=== PATIENT | male | born 1950 | race African-American/Black ===

== ENCOUNTER 2020-03-17 11:41 | Emergency (ER) | payer MEDICARE, OTHER ==
[~2020-03-17] VITALS: Ht 182.9 cm; Wt 90.7 kg
[2020-03-17] MEDS ORDERED: NAMENDA10 MG ORAL (11:51)
[2020-03-17] MEDS ORDERED: HYDROCHLOROTH12.5 MG ORAL (11:51)
[2020-03-17] MEDS ORDERED: MULTI-BETIC TA1 EAC1 ORAL (11:51)
[2020-03-17] MEDS ORDERED: LOSARTAN POTASS50 MG ORAL (11:51)
[2020-03-17] MEDS ORDERED: COLACE100 MG ORAL (11:51)
[2020-03-17] MEDS ORDERED: CELEXA20 MG ORAL (11:51)
[2020-03-17] MEDS ORDERED: NORVASC10 MG ORAL (11:51)
[2020-03-17] MEDS ORDERED: RISPERDAL0.5 MG ORAL (11:51)
[2020-03-17] MEDS ORDERED: CATAPRES0.1 MG ORAL (11:51)
[2020-03-17] MEDS ORDERED: MILK OF MA400 MG/51 ORAL (11:51)
[2020-03-17] MEDS ORDERED: ASCORBIC ACID500 MG ORAL (11:51)
[2020-03-17] MEDS ORDERED: TYLENOL325 MG ORAL (11:51)
[2020-03-17 12:03] VITALS: BP 153/81
[2020-03-17 12:05] LABS: EOSINOPHILS % (AUTO) 1.6 % (0.0-3.0); HEMATOCRIT 41.6 % (42.0-52.0); HEMOGLOBIN 14.7 G/DL (14.2-18.0); LYMPHOCYTES % (AUTO) 42.9 % (20.0-45.0); MEAN CORPUSCULAR VOLUME 90 FL (80-99); MONOCYTES % (AUTO) 9.3 % (1.0-10.0); NEUTROPHILS % (AUTO) 45.2 % (45.0-75.0); PLATELET COUNT 136 K/UL (150-450); RED BLOOD COUNT 4.63 M/UL (4.70-6.10); RED CELL DISTRIBUTION WIDTH 10.8 % (11.6-14.8); WHITE BLOOD COUNT 5.9 K/UL (4.8-10.8)
[2020-03-17 12:26] LABS: ANION GAP 9 mmol/L (5-15); BLOOD UREA NITROGEN 22 mg/dL (7-18); CALCIUM 9.3 MG/DL (8.5-10.1); CARBON DIOXIDE 28 MMOL/L (21-32); CHLORIDE 106 MMOL/L (98-107); CREATININE 1.4 MG/DL (0.55-1.30); SODIUM 143 MMOL/L (136-145)
[2020-03-17 12:31] LABS: ALANINE AMINOTRANSFERASE 22 U/L (12-78); ALBUMIN 3.5 G/DL (3.4-5.0); ALBUMIN/GLOBULIN RATIO 0.8 (1.0-2.7); ALKALINE PHOSPHATASE 59 U/L (46-116); ASPARTATE AMINO TRANSFERASE 17 U/L (15-37); BILIRUBIN,TOTAL 0.2 MG/DL (0.2-1.0)
--- NOTE | 2020-03-17 12:39 | Emergency Room Report ---
History of Present Illness General Chief Complaint: Altered Mental Status Source: Patient, EMS Present Illness HPI 69-year-old male presents ED for evaluation. Per EMS patient presenting from care home facility altered x1 day. Nursing staff states that patient will not talk to them. Upon arrival patient states he feels upset. That is why he was not speaking to the nurses. Denies SI or HI. Denies hearing voices. Denies fevers or chills. Denies pain. Denies cough. No other aggravating relieving factors. Denies any other associated symptoms Allergies: Coded Allergies: No Known Allergies (Unverified , 03/17/20) COVID-19 Screening Contact w/high risk pt: No Recent Travel to affected area: No Experienced COVID-19 symptoms?: No Patient History Past Medical History: psych hx Past Surgical History: none Pertinent Family History: none Social History: Denies: smoking, alcohol use, drug use Immunizations: UTD Reviewed Nursing Documentation: PMH: Agreed; PSxH: Agreed Nursing Documentation-PMH History Of Psychiatric Problem: Yes - ALZHEIMER, ANXIETY, DEPRESSION Review of Systems All Other Systems: negative except mentioned in HPI Physical Exam Vital Signs Date Time Temp Pulse Resp B/P (MAP) Pulse Ox O2 Delivery O2 Flow Rate FiO2 03/17/20 11:37 98.1 68 18 153/81 (105) 97 Room Air Sp02 EP Interpretation: reviewed, normal General Appearance: no apparent distress, alert, GCS 15, non-toxic Head: normocephalic, atraumatic Eyes: bilateral eye normal inspection, bilateral eye PERRL ENT: hearing grossly normal, normal pharynx, no angioedema, normal voice Neck: full range of motion, supple/symm/no masses Respiratory: chest non-tender, lungs clear, normal breath sounds, speaking full sentences Cardiovascular #1: regular rate, rhythm, no edema Cardiovascular #2: 2+ carotid (R), 2+ carotid (L), 2+ radial (R), 2+ radial (L) , 2+ dorsalis pedis (R), 2+ dorsalis pedis (L) Gastrointestinal: normal bowel sounds, non tender, soft, non-distended, no guarding, no rebound Rectal: deferred Genitourinary: normal inspection, no CVA tenderness Musculoskeletal: back normal, normal range of motion, gait/station normal, non- tender Neurologic: alert, motor strength/tone normal, oriented x3, sensory intact, responsive, speech normal Psychiatric: judgement/insight normal, memory normal, no suicidal/homicidal ideation, no delusions, anxious Reflexes: 3+ bicep (R), 3+ bicep (L), 3+ tricep (R), 3+ tricep (L), 3+ knee (R) , 3+ knee (L) Skin: no rash Lymphatic: no adenopathy Medical Decision Making Last Vital Signs Date Time Temp Pulse Resp B/P (MAP) Pulse Ox O2 Delivery O2 Flow Rate FiO2 03/17/20 12:03 98.1 60 18 153/81 97 Room Air Referrals: Dallas Diehl DO (PCP) Nikhil Maguire MD Mar 17, 2020 12:39
[2020-03-17 13:42] VITALS: BP 156/78
[2020-03-17 13:43] VITALS: BP 156/78
== END 2020-03-17 13:43 ==
LOC: EDBD 11:41 → EMR 11:59
DX: R41.82 Altered mental status, unspecified (principal); G30.9 Alzheimer's disease, unspecified; F02.80 Dementia in other diseases classified elsewhere, unspecified severity, without behavioral disturbance, psychotic disturbance, mood disturbance, and anxiety; F41.9 Anxiety disorder, unspecified; F32.9 Major depressive disorder, single episode, unspecified
CPT/HCPCS: 80053; 85025; 99283; G0480

== ENCOUNTER 2020-08-14 18:46 | Inpatient (IN) | payer MEDICARE, OTHER ==
[~2020-08-14] VITALS: Ht 175.3 cm; Wt 94.2 kg
[~2020-08-14 18:46] MED LIST: ASCORBIC ACID500 MG ORAL; CATAPRES0.1 MG ORAL; CELEXA20 MG ORAL; COLACE100 MG ORAL; HYDROCHLOROTH12.5 MG ORAL; LOSARTAN POTASS50 MG ORAL; MILK OF MA400 MG/51 ORAL; MULTI-BETIC TA1 EAC1 ORAL; NAMENDA10 MG ORAL; NORVASC10 MG ORAL; RISPERDAL0.5 MG ORAL; TYLENOL325 MG ORAL
[2020-08-14 19:07] VITALS: BP 116/77
--- NOTE | 2020-08-14 19:08 | Emergency Room Report ---
History of Present Illness General Chief Complaint: Syncope Source: EMS Present Illness HPI 70-year-old male here for confusion and syncopal episode. At the residential earlier today around 3 PM the patient was found on the floor. Patient does not recall this event. This time he has no complaints whatsoever. Denies headaches, vision changes, focal numbness or weakness, word finding difficulty, fevers, chills, chest pain, palpitation, shortness of breath, back pain, abdominal pain, nausea, vomiting, diarrhea, dysuria. 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 Complaining of mild confusion Head: normocephalic, atraumatic Eyes: bilateral eye normal inspection, bilateral eye PERRL ENT: hearing grossly normal, normal pharynx, no angioedema, normal voice Neck: full range of motion, supple/symm/no masses Respiratory: chest non-tender, lungs clear, normal breath sounds, speaking full sentences Cardiovascular #1: regular rate, rhythm, no edema Cardiovascular #2: 2+ carotid (R), 2+ carotid (L), 2+ radial (R), 2+ radial (L), 2+ dorsalis pedis (R), 2+ dorsalis pedis (L) Gastrointestinal: normal bowel sounds, non tender, soft, non-distended, no guarding, no rebound Rectal: deferred Genitourinary: normal inspection, no CVA tenderness Musculoskeletal: back normal, normal range of motion, calf tenderness, gait/station normal, non-tender Neurologic: motor strength/tone normal, sensory intact, responsive, speech normal, other - Alert and oriented to name and place. Does not know the year Psychiatric: judgement/insight normal, memory normal, mood/affect normal, no suicidal/homicidal ideation Lymphatic: no adenopathy Medical Decision Making Diagnostic Impression: Primary Impression: Syncope Additional Impression: Altered mental status ER Course Laboratory Tests Test 08/14/20 19:05 08/14/20 19:40 08/14/20 20:40 Sodium Level 139 MMOL/L (136-145) Potassium Level 4.1 MMOL/L (3.5-5.1) Chloride Level 105 MMOL/L (98-107) Carbon Dioxide Level 25 MMOL/L (21-32) Anion Gap 9 mmol/L (5-15) Blood Urea Nitrogen 23 mg/dL (7-18) H Creatinine 1.7 MG/DL (0.55-1.30) H Estimated Glomerular Filtration Rate 48.5 mL/min (>60) Glucose Level 119 MG/DL (74-106) H Calcium Level 9.8 MG/DL (8.5-10.1) Total Bilirubin 0.4 MG/DL (0.2-1.0) Aspartate Amino Transferase (AST) 25 U/L (15-37) Alanine Aminotransferase (ALT) 12 U/L (12-78) Alkaline Phosphatase 60 U/L (46-116) Total Creatine Kinase 229 U/L (26-308) Troponin I 0.000 ng/mL (0.000-0.056) Pro-B-Type Natriuretic Peptide 47 pg/mL (0-125) Total Protein 8.0 G/DL (6.4-8.2) Albumin 3.9 G/DL (3.4-5.0) Globulin 4.1 g/dL Albumin/Globulin Ratio 1.0 (1.0-2.7) White Blood Count 6.7 K/UL (4.8-10.8) Red Blood Count 4.35 M/UL (4.70-6.10) L Hemoglobin 13.4 G/DL (14.2-18.0) L Hematocrit 40.6 % (42.0-52.0) L Mean Corpuscular Volume 93 FL (80-99) Mean Corpuscular Hemoglobin 30.9 PG (27.0-31.0) Mean Corpuscular Hemoglobin Concent 33.1 G/DL (32.0-36.0) Red Cell Distribution Width 11.9 % (11.6-14.8) Platelet Count 136 K/UL (150-450) L Mean Platelet Volume 8.4 FL (6.5-10.1) Neutrophils (%) (Auto) 58.9 % (45.0-75.0) Lymphocytes (%) (Auto) 33.0 % (20.0-45.0) Monocytes (%) (Auto) 5.7 % (1.0-10.0) Eosinophils (%) (Auto) 0.9 % (0.0-3.0) Basophils (%) (Auto) 1.6 % (0.0-2.0) Lactic Acid Level Pending CT head: No acute process Chest x-ray: Indication altered mental status. No cardiopulmonary process 70-year-old male here for syncopal episode. Patient was hemodynamically stable without any complaints in the emergency department. However he was slightly was slow to respond to questions. He had normal vital signs throughout his stay in the ER. Otherwise negative physical examination. Normal neurologic exam. CBC, CMP, troponin, EKG, chest x-ray, CT head all unremarkable. The patient was admitted to telemetry in stable condition. Last Vital Signs Date Time Temp Pulse Resp B/P (MAP) Pulse Ox O2 Delivery O2 Flow Rate FiO2 08/14/20 18:46 57 12 116/77 (90) 98 Room Air Sulaiman Lambert M.D. Aug 14, 2020 19:08
--- NOTE | 2020-08-14 19:27 | Diagnostic Imaging Report ---
EXAM: XR Chest, 1 View CLINICAL HISTORY: SYNCOPE TECHNIQUE: Frontal view of the chest. COMPARISON: No relevant prior studies available. FINDINGS: Lungs: Unremarkable. Pleural space: Unremarkable. Heart: Unremarkable. Mediastinum: Unremarkable. Bones/joints: Unremarkable. IMPRESSION: Normal chest x-ray.
--- NOTE | 2020-08-14 19:41 | Diagnostic Imaging Report ---
EXAM: CT Head Without Intravenous Contrast CLINICAL HISTORY: AMS TECHNIQUE: Axial computed tomography images of the head/brain without intravenous contrast. CTDI is 53.4 mGy and DLP is 1018.8 mGy-cm. One or more of the following dose reduction techniques were used: automated exposure control, adjustment of the mA and/or kV according to patient size, use of iterative reconstruction technique. COMPARISON: No relevant prior studies available. FINDINGS: Brain: No acute infarct, hemorrhage, mass or edema. Chronic small vessel ischemic disease and senescent changes. Ventricles: Unremarkable. No ventriculomegaly. Bones/joints: Unremarkable. No acute calvarial fracture. Soft tissues: Unremarkable. Sinuses: Mild mucosal thickening of the paranasal sinuses. Mastoid air cells: Unremarkable as visualized. IMPRESSION: No acute infarct, hemorrhage, mass or edema.
[2020-08-14 19:52] LABS: ANION GAP 9 mmol/L (5-15); BLOOD UREA NITROGEN 23 mg/dL (7-18); CALCIUM 9.8 MG/DL (8.5-10.1); CARBON DIOXIDE 25 MMOL/L (21-32); CHLORIDE 105 MMOL/L (98-107); CREATININE 1.7 MG/DL (0.55-1.30); POTASSIUM 4.1 MMOL/L (3.5-5.1); SODIUM 139 MMOL/L (136-145)
[2020-08-14 20:04] LABS: ALANINE AMINOTRANSFERASE 12 U/L (12-78); ALBUMIN 3.9 G/DL (3.4-5.0); ALKALINE PHOSPHATASE 60 U/L (46-116); ASPARTATE AMINO TRANSFERASE 25 U/L (15-37); BILIRUBIN,TOTAL 0.4 MG/DL (0.2-1.0); CREATINE KINASE 229 U/L (26-308)
[2020-08-14 20:06] LABS: BASOPHILS % (AUTO) 1.6 % (0.0-2.0); EOSINOPHILS % (AUTO) 0.9 % (0.0-3.0); HEMATOCRIT 40.6 % (42.0-52.0); HEMOGLOBIN 13.4 G/DL (14.2-18.0); MEAN CORPUSCULAR VOLUME 93 FL (80-99); MONOCYTES % (AUTO) 5.7 % (1.0-10.0); NEUTROPHILS % (AUTO) 58.9 % (45.0-75.0); PLATELET COUNT 136 K/UL (150-450); RED BLOOD COUNT 4.35 M/UL (4.70-6.10); RED CELL DISTRIBUTION WIDTH 11.9 % (11.6-14.8); WHITE BLOOD COUNT 6.7 K/UL (4.8-10.8)
[2020-08-14 20:30] VITALS: BP 125/71
[2020-08-14 22:20] LABS: APPEARANCE,URINE CLEAR; BILIRUBIN, URINE NEGATIVE (NEGATIVE); GLUCOSE, URINE (UA) NEGATIVE (NEGATIVE); KETONES,URINE NEGATIVE (NEGATIVE); LEUKOCYTE ESTERASE ,URINE NEGATIVE (NEGATIVE); NITRITE,URINE NEGATIVE (NEGATIVE); PH,URINE 5 (4.5-8.0); PROTEIN,URINE NEGATIVE (NEGATIVE); UROBILINOGEN,URINE NORMAL MG/DL (0.0-1.0)
[2020-08-14 22:21] LABS: COLOR,URINE YELLOW
[2020-08-14] MEDS ORDERED: CRANBERRY500 M3 PO (23:23)
[2020-08-14] MEDS ORDERED: COLACE100 MG ORAL (23:23)
[2020-08-14] MEDS ORDERED: LEXAPRO5 MG ORAL (23:23)
[2020-08-14] MEDS ORDERED: TYLENOL EXTRA500 MG ORAL (23:23)
[2020-08-14] MEDS ORDERED: VITAMIN D350 MC1 PO (23:23)
[2020-08-14] MEDS ORDERED: CATAPRES0.1 MG ORAL (23:23)
[2020-08-14 23:44] VITALS: BP 131/82
[2020-08-15] VITALS (7 sets, daily range): BP systolic 122–150; BP diastolic 75–83
[2020-08-15] MEDS ORDERED: HYDROCHLOROTH12.5 MG ORAL (00:20)
[2020-08-15] MEDS ORDERED: BISACODYL10 M1 RC (00:20)
[2020-08-15] MEDS ORDERED: RISPERDAL1 MG PO (00:20)
[2020-08-15] MEDS ORDERED: DIOVAN80 MG ORAL (00:20)
[2020-08-15] MEDS ORDERED: Acetaminophen 500mg (ES) tab ORAL PRN ×2 (02:15)
[2020-08-15] MEDS ORDERED: Milk of Magnesia 30ml Ud ORAL PRN (02:15)
[2020-08-15] MEDS ORDERED: D5 1/2NS 1,000 ML IV SCH (04:30)
[2020-08-15 05:15] LABS: EOSINOPHILS % (AUTO) 2.2 % (0.0-3.0); HEMATOCRIT 37.7 % (42.0-52.0); HEMOGLOBIN 13.2 G/DL (14.2-18.0); MEAN CORPUSCULAR VOLUME 89 FL (80-99); MONOCYTES % (AUTO) 10.5 % (1.0-10.0); NEUTROPHILS % (AUTO) 41.4 % (45.0-75.0); PLATELET COUNT 153 K/UL (150-450); RED BLOOD COUNT 4.23 M/UL (4.70-6.10); RED CELL DISTRIBUTION WIDTH 11.4 % (11.6-14.8); WHITE BLOOD COUNT 6.7 K/UL (4.8-10.8)
[2020-08-15 05:42] LABS: CALCIUM 9.6 MG/DL (8.5-10.1); CREATININE 1.5 MG/DL (0.55-1.30); POTASSIUM 3.4 MMOL/L (3.5-5.1)
[2020-08-15] MEDS ORDERED: hydroCHLOROthiazide 12.5mg TAB ORAL SCH (09:00)
[2020-08-15] MEDS ORDERED: Vitamin D 1000 IU Tab ORAL SCH (09:00)
[2020-08-15] MEDS ORDERED: Losartan 50mg tab ORAL SCH (09:00)
[2020-08-15 09:14] LABS: ALANINE AMINOTRANSFERASE 15 U/L (12-78); ALBUMIN 3.7 G/DL (3.4-5.0); ALKALINE PHOSPHATASE 55 U/L (46-116); ASPARTATE AMINO TRANSFERASE 19 U/L (15-37); BILIRUBIN,DIRECT < 0.1 MG/DL (0.0-0.3); BILIRUBIN,TOTAL 0.3 MG/DL (0.2-1.0); PHOSPHORUS 3.3 MG/DL (2.5-4.9)
[2020-08-15] MEDS: Docusate 100mg cap ORAL SCH ×2 (09:25→17:27)
[2020-08-15] MEDS: Memantine 10mg tab ORAL SCH ×2 (09:26→17:27)
[2020-08-15] MEDS: Heparin 5000 units/ml inj SUBQ SCH ×2 (09:28→22:03)
--- NOTE | 2020-08-15 12:00 | History and Physical Report ---
DATE OF ADMISSION: 08/14/2020 DATE AND TIME SEEN: 08/15/2020 at 8 a.m. CONSULTANTS: 1. Delvis Ogden MD. 2. Arnold Li MD. 3. Polo Hernandez MD. CHIEF COMPLAINT: Syncope, hypotension, altered mental status. BRIEF HISTORY: This is a 70-year-old male from [facility], presented with above-mentioned diagnoses, admitted through [facility]. Currently, calm in bed, slightly confused. No complaint. REVIEW OF SYSTEMS: No chest pain. No shortness of breath. No nausea, vomiting, or diarrhea. PAST MEDICAL HISTORY: Includes hypertension, psychosis, acute renal failure, COPD, paranoid schizophrenia. PAST SURGICAL HISTORY: Unknown. MEDICATIONS: Include hydrochlorothiazide, Risperdal, memantine, escitalopram, losartan, amlodipine, Tylenol, magnesium, clonidine. ALLERGIES: Iodine. SOCIAL HISTORY: No smoking. No alcohol. No intravenous drug abuse. FAMILY HISTORY: Noncontributory. PHYSICAL EXAMINATION: GENERAL: Calm in bed, oriented x1, in no acute distress. VITAL SIGNS: Temperature 98 degrees, pulse 66, respirations 16, blood pressure 148/80. CARDIOVASCULAR: No murmur. LUNGS: Distant and clear. ABDOMEN: Positive bowel sounds. Soft, nontender, nondistended. EXTREMITIES: No cyanosis or edema. NEUROLOGIC: The patient moves all extremities, slightly weak LABORATORY AND DIAGNOSTIC DATA: Labs at this time show hemoglobin and hematocrit 13/37, otherwise CBC is normal. BMP show potassium 3.4, BUN and creatinine is 21/1.5, otherwise normal. Urinalysis is negative. ASSESSMENT: 1. Syncope, hypotension, and altered mental status. 2. Anemia. 3. History of hypertension. 4. Schizophrenia. 5. Acute renal failure. 6. COPD. PLAN: 1. PT/OT dietary followup. 2. Resume home medications. 3. Troponin q.8h. x3. 4. EKG in the morning. 5. We will add Dr. Toure, Nephrology evaluation. 6. CBC and BMP in the morning. Dallas Diehl D.O. DR: JENNIFER/FRANCINE JOB#: [id number] CC:
--- NOTE | 2020-08-15 14:50 | Consultation ---
Consult Note Consult Note I am asked to evaluate the patient at the request of Dr. Diehl for elevated serum creatinine and electrolyte imbalances Patient seen in room 201 Patient examined Laboratory data and information in the EMR reviewed 70-year-old male here for confusion and syncopal episode. At the skilled nursing earlier today around 3 PM the patient was found on the floor. Patient does not recall this event. This time he has no complaints whatsoever. Denies headaches, vision changes, focal numbness or weakness, word finding difficulty, fevers, chills, chest pain, palpitation, shortness of breath, back pain, abdominal pain, nausea, vomiting, diarrhea, dysuria. 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 HEAD AND NECK: No JVD. LUNGS: Clear. CARDIOVASCULAR: Regular S1 and S2 with no gallop or murmur. ABDOMEN: Soft. EXTREMITIES: No pitting edema. LABORATORY AND DIAGNOSTIC DATA: Labs show white count of 6.7, hemoglobin 15.7, hematocrit 37.7, and platelet count of 153,000. Sodium 139, potassium 3.4, BUN of 21, creatinine 1.5, glucose of 99. Troponin negative x2. . Assessment/Plan Imp: Acute on chronic renal failure, creatinine of 1.7 down to 1.5 Underlying dehydration Syncope Toxic metabolic encephalopathy Mild anemia HTN Hypokalemia Plan: Hold diuretics Potassium supplement Adjust blood pressure medication with proper parameters Monitor renal parameters Per consultants Urine for tox screen Kenny Toure MD Aug 15, 2020 14:50
[2020-08-15] MEDS: D5NS 1,000 ML IV SCH (15:30)
--- NOTE | 2020-08-15 15:32 | Cardiac Electrophysiology PN ---
Subjective Subjective [id number] Objective Last 24 Hour Vital Signs Date Time Temp Pulse Resp B/P (MAP) Pulse Ox O2 Delivery O2 Flow Rate FiO2 08/15/20 12:00 56 08/15/20 12:00 98.1 61 18 122/75 (91) 100 08/15/20 09:26 145/79 08/15/20 09:26 67 145/79 08/15/20 09:00 Room Air 08/15/20 08:00 83 08/15/20 08:00 97.9 67 18 145/79 (101) 99 08/15/20 06:00 66 08/15/20 06:00 98.1 56 16 148/80 (102) 100 08/15/20 04:00 98.1 56 16 148/80 (102) 100 08/15/20 00:00 54 08/15/20 00:00 97.9 57 20 132/76 (94) 100 08/14/20 23:47 Room Air 08/14/20 23:44 98.5 55 20 131/82 96 Room Air 08/14/20 23:40 98.5 87 12 116/77 98 Room Air 08/14/20 20:30 98.5 57 16 125/71 96 Room Air 08/14/20 19:07 87 12 116/77 98 Room Air 08/14/20 18:46 57 12 116/77 (90) 98 Room Air Intake and Output 08/14/20 08/15/20 19:00 07:00 Intake Total 140 ml Balance 140 ml Intake Oral 0 ml IV Total 140 ml # Voids 2 Laboratory Tests Test 08/14/20 19:05 08/14/20 19:40 08/14/20 20:40 08/14/20 21:48 Sodium Level 139 MMOL/L (136-145) Potassium Level 4.1 MMOL/L (3.5-5.1) Chloride Level 105 MMOL/L (98-107) Carbon Dioxide Level 25 MMOL/L (21-32) Anion Gap 9 mmol/L (5-15) Blood Urea Nitrogen 23 mg/dL (7-18) H Creatinine 1.7 MG/DL (0.55-1.30) H Estimat Glomerular Filtration Rate 48.5 mL/min (>60) Glucose Level 119 MG/DL (74-106) H Calcium Level 9.8 MG/DL (8.5-10.1) Total Bilirubin 0.4 MG/DL (0.2-1.0) Aspartate Amino Transf (AST/SGOT) 25 U/L (15-37) Alanine Aminotransferase (ALT/SGPT) 12 U/L (12-78) Alkaline Phosphatase 60 U/L (46-116) Total Creatine Kinase 229 U/L (26-308) Troponin I 0.000 ng/mL (0.000-0.056) Pro-B-Type Natriuretic Peptide 47 pg/mL (0-125) Total Protein 8.0 G/DL (6.4-8.2) Albumin 3.9 G/DL (3.4-5.0) Globulin 4.1 g/dL Albumin/Globulin Ratio 1.0 (1.0-2.7) White Blood Count 6.7 K/UL (4.8-10.8) Red Blood Count 4.35 M/UL (4.70-6.10) L Hemoglobin 13.4 G/DL (14.2-18.0) L Hematocrit 40.6 % (42.0-52.0) L Mean Corpuscular Volume 93 FL (80-99) Mean Corpuscular Hemoglobin 30.9 PG (27.0-31.0) Mean Corpuscular Hemoglobin Concent 33.1 G/DL (32.0-36.0) Red Cell Distribution Width 11.9 % (11.6-14.8) Platelet Count 136 K/UL (150-450) L Mean Platelet Volume 8.4 FL (6.5-10.1) Neutrophils (%) (Auto) 58.9 % (45.0-75.0) Lymphocytes (%) (Auto) 33.0 % (20.0-45.0) Monocytes (%) (Auto) 5.7 % (1.0-10.0) Eosinophils (%) (Auto) 0.9 % (0.0-3.0) Basophils (%) (Auto) 1.6 % (0.0-2.0) Lactic Acid Level 0.40 mmol/L (0.4-2.0) Urine Color Yellow Urine Appearance Clear Urine pH 5 (4.5-8.0) Urine Specific [place] 1.015 (1.005-1.035) Urine Protein Negative (NEGATIVE) Urine Glucose (UA) Negative (NEGATIVE) Urine Ketones Negative (NEGATIVE) Urine Blood Negative (NEGATIVE) Urine Nitrite Negative (NEGATIVE) Urine Bilirubin Negative (NEGATIVE) Urine Urobilinogen Normal MG/DL (0.0-1.0) Urine Leukocyte Esterase Negative (NEGATIVE) Test 08/15/20 04:05 08/15/20 12:15 White Blood Count 6.7 K/UL (4.8-10.8) Red Blood Count 4.23 M/UL (4.70-6.10) L Hemoglobin 13.2 G/DL (14.2-18.0) L Hematocrit 37.7 % (42.0-52.0) L Mean Corpuscular Volume 89 FL (80-99) Mean Corpuscular Hemoglobin 31.2 PG (27.0-31.0) H Mean Corpuscular Hemoglobin Concent 35.1 G/DL (32.0-36.0) Red Cell Distribution Width 11.4 % (11.6-14.8) L Platelet Count 153 K/UL (150-450) Mean Platelet Volume 7.4 FL (6.5-10.1) Neutrophils (%) (Auto) 41.4 % (45.0-75.0) L Lymphocytes (%) (Auto) 45.0 % (20.0-45.0) Monocytes (%) (Auto) 10.5 % (1.0-10.0) H Eosinophils (%) (Auto) 2.2 % (0.0-3.0) Basophils (%) (Auto) 1.0 % (0.0-2.0) Sodium Level 139 MMOL/L (136-145) Potassium Level 3.4 MMOL/L (3.5-5.1) L Chloride Level 104 MMOL/L (98-107) Carbon Dioxide Level 25 MMOL/L (21-32) Anion Gap 10 mmol/L (5-15) Blood Urea Nitrogen 21 mg/dL (7-18) H Creatinine 1.5 MG/DL (0.55-1.30) H Estimat Glomerular Filtration Rate 56.1 mL/min (>60) Glucose Level 99 MG/DL (74-106) Uric Acid 7.0 MG/DL (2.6-7.2) Calcium Level 9.6 MG/DL (8.5-10.1) Phosphorus Level 3.3 MG/DL (2.5-4.9) Magnesium Level 2.1 MG/DL (1.8-2.4) Total Bilirubin 0.3 MG/DL (0.2-1.0) Direct Bilirubin < 0.1 MG/DL (0.0-0.3) Aspartate Amino Transf (AST/SGOT) 19 U/L (15-37) Alanine Aminotransferase (ALT/SGPT) 15 U/L (12-78) Alkaline Phosphatase 55 U/L (46-116) Troponin I 0.000 ng/mL (0.000-0.056) 0.000 ng/mL (0.000-0.056) Total Protein 7.1 G/DL (6.4-8.2) Albumin 3.7 G/DL (3.4-5.0) Thyroid Stimulating Hormone (TSH) 1.475 uiU/mL (0.358-3.740) Delvis Ogden MD Aug 15, 2020 15:32
[2020-08-15] MEDS ORDERED: LORazepam 0.5mg tab ORAL PRN (16:15)
--- NOTE | 2020-08-15 16:21 | Diagnostic Imaging Report ---
EXAM: US Duplex Bilateral Extracranial Arteries CLINICAL HISTORY: SYNCOPE TECHNIQUE: Real-time duplex ultrasound scan of the extracranial arteries integrating B-mode two-dimensional vascular structure, Doppler spectral analysis and color flow Doppler imaging. COMPARISON: No relevant prior studies available. FINDINGS: Right common carotid artery: No significant abnormality. No occlusion or significant stenosis on color flow and spectral Doppler imaging. Right internal carotid artery: No significant abnormality. No occlusion or significant stenosis on color flow and spectral Doppler imaging. Right external carotid artery: No significant abnormality. No occlusion or significant stenosis on color flow and spectral Doppler imaging. Right vertebral artery: Right vertebral artery was not visualized. Right ICA/CCA ratio: No significant abnormality. Within normal limits. Left common carotid artery: No significant abnormality. No occlusion or significant stenosis on color flow and spectral Doppler imaging. Left internal carotid artery: Mild atherosclerosis of the left carotid bulb. No hemodynamically significant stenosis. No occlusion. Left external carotid artery: No significant abnormality. No occlusion or significant stenosis on color flow and spectral Doppler imaging. Left vertebral artery: No significant abnormality. Antegrade flow. Left ICA/CCA ratio: No significant abnormality. Within normal limits. Lymph nodes: No significant abnormality. No lymphadenopathy. CAROTID STENOSIS REFERENCE USING SRU CRITERIA: Mild - <50% stenosis. ICA PSV is less than 125 cm/second and plaque or intimal thickening is visible. Moderate - 50-69% stenosis. ICA PSV is 125 to 230 cm/second and plaque is visible. Severe - 70-94% stenosis. ICA PSV is more than 230 cm/second and visible plaque with lumen narrowing is seen. Near occlusion - 95-99% stenosis. ICA PSV is variable and significant plaque with luminal narrowing is seen. Occluded - 100% stenosis. No flow identified. IMPRESSION: 1. No hemodynamically significant stenosis in bilateral internal carotid arteries. 2. Antegrade flow in the left vertebral artery. The right vertebral artery was not visualized.
[2020-08-15] MEDS ORDERED: D5 1/2NS 1000ml IV ONE (18:42)
--- NOTE | 2020-08-15 19:15 | Consultation ---
DATE OF CONSULTATION: 08/15/2020 CARDIOLOGY CONSULTATION CONSULTING PHYSICIAN: Delvis Ogden M.D. REFERRING PHYSICIAN: Dallas Diehl D.O. REASON FOR CONSULTATION: Syncope. HISTORY OF PRESENT ILLNESS: The patient is a 70-year-old gentleman with history of hypertension, who was brought from a senior living for syncopal episodes and confusion. The patient did not complain of any chest pain, shortness of breath, nausea, or vomiting. The patient was admitted and cardiology consultation was obtained for further evaluation. REVIEW OF SYSTEMS: Negative other than what was mentioned in history of present illness. PAST MEDICAL HISTORY: As mentioned above. FAMILY HISTORY: Noncontributory. SOCIAL HISTORY: He is a senior living resident. He does not smoke or drink alcohol. PHYSICAL EXAMINATION: VITAL SIGNS: Blood pressure 160/77, pulse 57, respirations 14, and he is afebrile. HEAD AND NECK: No JVD. LUNGS: Clear. CARDIOVASCULAR: Regular S1 and S2 with no gallop or murmur. ABDOMEN: Soft. EXTREMITIES: No pitting edema. LABORATORY AND DIAGNOSTIC DATA: Labs show white count of 6.7, hemoglobin 15.7, hematocrit 37.7, and platelet count of 153,000. Sodium 139, potassium 3.4, BUN of 21, creatinine 1.5, glucose of 99. Troponin negative x2. ASSESSMENT AND PLAN: 1. Syncope. Etiology is not clear at this time. The patient was only mildly bradycardic. The patient already ruled out for myocardial infarction. cardiac enzymes. Neurology evaluation is pending. Urine tox screen is negative. We will get a carotid ultrasound and get an echocardiogram for further evaluation and management. 2. History of hypertension. Continue Cozaar 50 mg b.i.d. and p.r.n. clonidine as well as Norvasc 10 mg daily. 3. History of dementia. Thank you very much for allowing me to participate in the care of this patient. Please do not hesitate to contact me for any questions regarding my evaluation. Delvis Ogden M.D. DR: Ehsan JOB#: [id number] CC:
[2020-08-15] MEDS: Losartan 50mg tab ORAL SCH (21:00)
--- NOTE | 2020-08-15 22:30 | Consultation ---
DATE OF CONSULTATION: 08/15/2020 INITIAL PSYCHIATRIC EVALUATION CONSULTING PHYSICIAN: Polo Hernandez M.D. HISTORY OF PRESENT ILLNESS: This is a 70-year-old male who came into the hospital secondary to syncopal reaction, hypotension, altered mental status. He came from [facility]. He had confusion and altered mental status. Cognition has declined below his baseline. That is why, his attending has requested psychiatric consultation at this time, so this is the initial psychiatric consultation. He is confused and disorganized poor historian, so a lot of information had to be obtained through chart review. PAST MEDICAL HISTORY: He has a history of hypertension, acute renal disorder, COPD, and he also has hypokalemia as well. ALLERGIES: He has allergies to iodine. PSYCHOTROPIC MEDICATIONS ON ADMISSION: Lexapro 10 mg daily, Namenda 10 mg twice a day, and also reported history of Risperdal 0.5 mg (1 mg twice a day). PAIN ASSESSMENT: 0/10 pain. DEVELOPMENTAL PROBLEMS: Denies. SUBSTANCE ABUSE HISTORY: He has no known history of any drug or alcohol use at this time. FAMILY PSYCHIATRIC HISTORY: Denies. SOCIAL HISTORY: The patient lives in Group Home. Financially supported by [employer] and Medicare. STRENGTHS: He is motivated to get better and is relatively healthy. WEAKNESSES: He is impulsive. He has got minimal support system. MENTAL STATUS EXAMINATION: This is a 70-year-old male. His appearance is disheveled. His attitude is irritable and agitated. Affect is guarded and restricted. Intellect poor because he does not know current events, does not know last four presidents. Mood depressed and anxious. Motor activity, psychomotor agitation. Attention span is poor because he cannot do serial 7's or spell world backwards. Orientation x2. He is oriented to person and place, not time or situation. Speech, there is low volume, nonsensical. Thought process, disorganized and illogical. Thought content, auditory hallucinations and paranoid delusions. Insight is poor. Short-term memory, 2 out 3 after 3-word recall, so poor short-term memory. Long-term memory is intact based on his knowledge of long-term events in his life such as high school that he went to. Insight is poor because he does not recognize the details of his psychiatric condition. Judgment is poor because he cannot make medical decisions for himself. DIAGNOSES: 1. Major depressive disorder, mild, recurrent with psychotic features. Rule out dementia with psychosis. 2. There is no secondary. 3. Medical, COPD, acute renal failure, hypertension. 4. Psychosocial stressors, financial. 5. Function impairment is mild. PLAN: My plan is to treat this patient with a medication regimen of Lexapro 10 mg daily, Risperdal 1 mg twice a day, and Namenda 10 mg twice a day. Provided him with 20 minutes of insight-oriented psychotherapy to help him have better understanding of his physical and psychiatric condition, so that he has less depression, anxiety, and better impulse control. Chart reviewed. Discussed with staff. He is seen and assessed at bedside. Polo Hernandez M.D. DR: Susy JOB#: [id number] CC:
[2020-08-16] VITALS: BP 119/71
[2020-08-16 04:00] VITALS: BP 125/76
[2020-08-16 08:00] VITALS: BP 135/82
[2020-08-16 08:41] LABS: BASOPHILS % (AUTO) 1.8 % (0.0-2.0); EOSINOPHILS % (AUTO) 1.3 % (0.0-3.0); HEMATOCRIT 40.7 % (42.0-52.0); HEMOGLOBIN 14.2 G/DL (14.2-18.0); LYMPHOCYTES % (AUTO) 37.7 % (20.0-45.0); MEAN CORPUSCULAR VOLUME 89 FL (80-99); MONOCYTES % (AUTO) 7.4 % (1.0-10.0); NEUTROPHILS % (AUTO) 51.8 % (45.0-75.0); PLATELET COUNT 157 K/UL (150-450); RED BLOOD COUNT 4.57 M/UL (4.70-6.10); RED CELL DISTRIBUTION WIDTH 11.4 % (11.6-14.8); WHITE BLOOD COUNT 6.1 K/UL (4.8-10.8)
[2020-08-16] MEDS: Losartan 50mg tab ORAL SCH ×2 (08:51→20:41)
[2020-08-16] MEDS: Docusate 100mg cap ORAL SCH ×3 (08:51→17:38)
[2020-08-16] MEDS: Memantine 10mg tab ORAL SCH (08:51)
[2020-08-16] MEDS: Heparin 5000 units/ml inj SUBQ SCH ×2 (08:52→20:43)
[2020-08-16 09:27] LABS: ALANINE AMINOTRANSFERASE 15 U/L (12-78); ALBUMIN 3.7 G/DL (3.4-5.0); ALKALINE PHOSPHATASE 56 U/L (46-116); ANION GAP 8 mmol/L (5-15); ASPARTATE AMINO TRANSFERASE 21 U/L (15-37); BILIRUBIN,TOTAL 0.3 MG/DL (0.2-1.0); BLOOD UREA NITROGEN 17 mg/dL (7-18); CALCIUM 9.6 MG/DL (8.5-10.1); CARBON DIOXIDE 25 MMOL/L (21-32); CHLORIDE 105 MMOL/L (98-107); CHOLESTEROL 179 MG/DL (< 200); CREATININE 1.5 MG/DL (0.55-1.30); HDL CHOLESTEROL 34 MG/DL (40-60); PHOSPHORUS 2.7 MG/DL (2.5-4.9); SODIUM 138 MMOL/L (136-145); TRIGLYCERIDES 163 MG/DL (30-150)
--- NOTE | 2020-08-16 09:40 | General Progress Note ---
Subjective Constitutional: Reports: weakness Allergies: Coded Allergies: IODINE (Verified Allergy, Unknown, 08/14/20) All Systems: reviewed and negative except above Subjective calm in bed Objective Last 24 Hour Vital Signs Date Time Temp Pulse Resp B/P (MAP) Pulse Ox O2 Delivery O2 Flow Rate FiO2 08/16/20 08:51 135/82 08/16/20 08:51 64 135/82 08/16/20 08:00 96.1 64 20 135/82 (99) 96 08/16/20 04:00 97.7 56 18 125/76 (92) 99 08/16/20 04:00 48 08/16/20 00:00 54 08/16/20 00:00 97.5 54 18 119/71 (87) 96 08/15/20 21:00 132/83 08/15/20 21:00 Room Air 08/15/20 20:00 58 08/15/20 20:00 97.5 53 18 132/83 (99) 100 08/15/20 16:00 59 08/15/20 16:00 97.7 65 18 150/77 (101) 100 08/15/20 12:00 56 08/15/20 12:00 98.1 61 18 122/75 (91) 100 Intake and Output 08/15/20 08/16/20 19:00 07:00 Intake Total 690 ml 110 ml Output Total 550 ml Balance 140 ml 110 ml Intake Oral 690 ml Other 110 ml Output Urine Total 550 ml # Voids 1 Laboratory Tests 08/15/20 12:15: Troponin I 0.000 08/15/20 19:45: Troponin I 0.000 08/16/20 08:00: White Blood Count 6.1, Red Blood Count 4.57L, Hemoglobin 14.2, Hematocrit 40.7L, Mean Corpuscular Volume 89, Mean Corpuscular Hemoglobin 31.1H, Mean Corpuscular Hemoglobin Concent 35.0, Red Cell Distribution Width 11.4L, Platelet Count 157, Mean Platelet Volume 7.5, Neutrophils (%) (Auto) 51.8, Lymphocytes (%) (Auto) 37.7, Monocytes (%) (Auto) 7.4, Eosinophils (%) (Auto) 1.3, Basophils (%) (Auto) 1.8, Sodium Level 138, Potassium Level 4.0, Chloride Level 105, Carbon Dioxide Level 25, Anion Gap 8, Blood Urea Nitrogen 17, Creatinine 1.5H, Estimat Glomerular Filtration Rate 56.1, Glucose Level 125H, Hemoglobin A1c 5.8, Uric Acid 6.1, Calcium Level 9.6, Phosphorus Level 2.7, Magnesium Level 2.0, Total Bilirubin 0.3, Aspartate Amino Transf (AST/SGOT) 21, Alanine Aminotransferase ( ALT/SGPT) 15, Alkaline Phosphatase 56, Total Protein 7.3, Albumin 3.7, Globulin 3.6, Albumin/Globulin Ratio 1.0, Triglycerides Level 163H, Cholesterol Level 179, LDL Cholesterol 114H, HDL Cholesterol 34L, Cholesterol/HDL Ratio 5.3H, Free Thyroxine [Pending] Height (Feet): 5 Height (Inches): 9.00 Weight (Pounds): 207 General Appearance: lethargic EENT: normal ENT inspection Neck: normal alignment Cardiovascular: normal peripheral pulses, normal rate, regular rhythm Respiratory/Chest: chest wall non-tender, lungs clear, normal breath sounds Abdomen: normal bowel sounds, non tender, soft Extremities: normal inspection Edema: no edema noted Arm (L), no edema noted Arm (R), no edema noted Leg (L), no edema noted Leg (R), no edema noted Pedal (L), no edema noted Pedal (R), no edema noted Generalized Neurologic: motor weakness Skin: normal pigmentation, warm/dry Assessment/Plan Problem List: (1) HTN (hypertension) ICD Codes: I10 - Essential (primary) hypertension SNOMED: 35799802 (2) ARF (acute renal failure) ICD Codes: N17.9 - Acute kidney failure, unspecified SNOMED: 87167172 (3) Weak ICD Codes: R53.1 - Weakness SNOMED: 51405424 (4) AMS (altered mental status) ICD Codes: R41.82 - Altered mental status, unspecified SNOMED: 716079781 (5) Anemia ICD Codes: D64.9 - Anemia, unspecified SNOMED: 542106092 (6) COPD (chronic obstructive pulmonary disease) ICD Codes: J44.9 - Chronic obstructive pulmonary disease, unspecified SNOMED: 64819697 (7) Behavioral change ICD Codes: R46.89 - Other symptoms and signs involving appearance and behavior SNOMED: 102423890 (8) Altered mental status ICD Codes: R41.82 - Altered mental status, unspecified SNOMED: 057912722 (9) Syncope ICD Codes: R55 - Syncope and collapse SNOMED: 450047851 Status: unchanged Assessment/Plan: pt diet cardio neuro eval cbc bmp am celeu Dallas Blanchard DO Aug 16, 2020 09:40
--- NOTE | 2020-08-16 10:22 | Initial Psychiatric Evaluation ---
Psychiatry Consultation Psychiatry Consultation Chief Complaint: Syncope History of Present Illness: 70-year-old male patient got altered mental status confusion and some disorganized thought process is got overall decline in cognition below his baseline mood lability and psychosis his mood lability has gotten worse and he seems to have poor insight into his psychiatric and physical condition Mental status examination: 70-year-old male appearance is disheveled at irritable agitated affect guarded restricted intellect poor mood depressed anxious moderately psychomotor agitation attention is poor orientation x2 speech is low volume clear thought process is logical and judgment was poor Allergies: Coded Allergies: IODINE (Verified Allergy, Unknown, 08/14/20) Medication History Scheduled Amlodipine Besylate (Norvasc), 10 MG ORAL DAILY, (Reported) Ascorbic Acid* (Ascorbic Acid*), 500 MG ORAL DAILY, (Reported) Citalopram Hydrobromide* (Celexa*), 20 MG ORAL DAILY, (Reported) Clonidine Hcl* (Catapres*), 0.1 MG ORAL Q6H, (Reported) Clonidine Hcl* (Catapres*), 0.1 MG ORAL EVERY 6 HOURS, (Reported) Docusate Sodium* (Colace*), 100 MG ORAL TWICE A DAY, (Reported) Docusate Sodium* (Colace*), 100 MG ORAL DAILY, (Reported) Escitalopram Oxalate (Lexapro), 10 MG ORAL DAILY, (Reported) Escitalopram Oxalate (Lexapro), 10 MG ORAL DAILY, (Reported) Hydrochlorothiazide* (Hydrochlorothiazide*), 12.5 MG ORAL DAILY, (Reported) Hydrochlorothiazide* (Hydrochlorothiazide*), 12.5 MG ORAL DAILY, (Reported) Losartan Potassium* (Losartan Potassium*), 100 MG ORAL DAILY, (Reported) Magnesium Hydroxide* (Milk Of Magnesia*), 30 ML ORAL DAILY, (Reported) Memantine Hcl* (Namenda*), 10 MG ORAL TWICE A DAY, (Reported) Multivit W-Mn/Fa/Lycop/Lut/Ala (Multi-Betic Tablet), 1 TAB ORAL DAILY, (Reported) Risperidone* (Risperdal*), 0.25 MG ORAL DAILY, (Reported) Risperidone* (Risperdal*), 1 MG PO BID, (Reported) Valsartan (Diovan), 160 MG ORAL DAILY, (Reported) Scheduled PRN Acetaminophen (Tylenol), 650 MG ORAL Q6H PRN for Prn Pain/Headache/Temp > 101, (Reported) Acetaminophen* (Tylenol Extra Strength*), 500 MG ORAL Q6H PRN for Mild Pain/Temp > 100.5, (Reported) Miscellaneous Medications Bisacodyl (Bisacodyl), 10 MG RC, (Reported) Cholecalciferol (Vitamin D3) (Vitamin D3), 50 MCG PO, (Reported) Cranberry Fruit (Cranberry), 500 MG PO, (Reported) Objective Data Height (Feet): 5 Height (Inches): 9.00 Weight (Pounds): 207 Assessment/Plan Assessment/Plan: Namenda 10 mg twice a day Lexapro 10 mg once a day Risperdal 1 mg twice a day insight oriented psychotherapy provided while helping him identify on the negative thoughts (negative thoughts to more positive thoughts and help him have a better understanding of his physical and mental condition so that he has better impulse control less anxiety and depression Diagnosis [place] I: 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
[2020-08-16] MEDS: D5NS 1,000 ML IV SCH (10:25)
[2020-08-16 12:00] VITALS: BP 139/80
--- NOTE | 2020-08-16 12:16 | Nephrology Progress Note ---
Assessment/Plan Problem List: (1) ARF (acute renal failure) (2) Syncope (3) Dehydration (4) Electrolyte imbalance (5) HTN (hypertension) (6) Anemia Assessment Acute on chronic renal failure, creatinine of 1.7 down to 1.5 Underlying dehydration Syncope Toxic metabolic encephalopathy Mild anemia HTN Hypokalemia Plan Hold IV fluid Hold diuretics Potassium supplement, as needed Adjust blood pressure medication with proper parameters Monitor renal parameters Per consultants Urine for tox screen, still pending Assessment of psych medication per psychiatrist with regard to to relationship with syncopal episode Subjective ROS Limited/Unobtainable: No Constitutional: Reports: malaise Objective Objective Last 24 Hour Vital Signs Date Time Temp Pulse Resp B/P (MAP) Pulse Ox O2 Delivery O2 Flow Rate FiO2 08/16/20 09:00 Room Air 08/16/20 08:51 135/82 08/16/20 08:51 64 135/82 08/16/20 08:00 96.1 64 20 135/82 (99) 96 08/16/20 08:00 76 08/16/20 04:00 97.7 56 18 125/76 (92) 99 08/16/20 04:00 48 08/16/20 00:00 54 08/16/20 00:00 97.5 54 18 119/71 (87) 96 08/15/20 21:00 132/83 08/15/20 21:00 Room Air 08/15/20 20:00 58 08/15/20 20:00 97.5 53 18 132/83 (99) 100 08/15/20 16:00 59 08/15/20 16:00 97.7 65 18 150/77 (101) 100 Intake and Output 08/15/20 08/16/20 19:00 07:00 Intake Total 690 ml 110 ml Output Total 550 ml Balance 140 ml 110 ml Intake Oral 690 ml Other 110 ml Output Urine Total 550 ml # Voids 1 Current Medications Medications (Trade) Dose Ordered Sig/Oanh Route PRN Reason Start Time Stop Time Status Last Admin Dose Admin Acetaminophen (Tylenol) 500 mg Q6H PRN ORAL MOD 08/15/20 02:15 09/14/20 02:14 Acetaminophen (Tylenol) 650 mg Q6H PRN ORAL Mild Pain (Pain Scale 1-3) 08/15/20 02:15 09/14/20 02:14 Amlodipine Besylate (Norvasc) 10 mg DAILY ORAL 08/15/20 09:00 09/14/20 08:59 08/16/20 08:51 Bisacodyl (Dulcolax) 10 mg DAILYPRN PRN RECTAL Constipation 08/15/20 02:15 11/13/20 02:14 Clonidine HCl (Catapres Tab) 0.1 mg Q4H PRN ORAL SBP>165 08/15/20 15:15 11/13/20 02:14 Dextrose/Sodium Chloride 1,000 ml @ 50 mls/hr Q20H IV 08/15/20 15:15 09/14/20 15:14 08/16/20 10:25 Docusate Sodium (Colace) 100 mg TWICE A DAY ORAL 08/15/20 09:00 09/14/20 08:59 08/16/20 08:51 Escitalopram Oxalate (Lexapro) 10 mg DAILY ORAL 08/15/20 09:00 09/14/20 08:59 08/16/20 08:50 Heparin Sodium (Porcine) (Heparin 5000 units/ml) 5,000 units EVERY 12 HOURS SUBQ 08/15/20 09:00 09/29/20 08:59 08/16/20 08:52 Lorazepam (Ativan) 0.5 mg Q6H PRN ORAL For Anxiety 08/15/20 16:15 08/22/20 16:14 Losartan Potassium (Cozaar) 50 mg EVERY 12 HOURS ORAL 08/15/20 21:00 09/14/20 20:59 08/16/20 08:51 Magnesium Hydroxide (Mom) 30 ml DAILYPRN PRN ORAL Constipation 08/15/20 02:15 09/14/20 02:14 Memantine (Namenda) 10 mg BID ORAL 08/15/20 09:00 09/14/20 08:59 08/16/20 08:51 Risperidone (RisperDAL) 1 mg BID ORAL 08/15/20 09:00 09/29/20 08:59 08/16/20 08:50 Laboratory Tests 08/15/20 19:45: Troponin I 0.000 08/16/20 08:00: White Blood Count 6.1, Red Blood Count 4.57L, Hemoglobin 14.2, Hematocrit 40.7L, Mean Corpuscular Volume 89, Mean Corpuscular Hemoglobin 31.1H, Mean Corpuscular Hemoglobin Concent 35.0, Red Cell Distribution Width 11.4L, Platelet Count 157, Mean Platelet Volume 7.5, Neutrophils (%) (Auto) 51.8, Lymphocytes (%) (Auto) 37.7, Monocytes (%) (Auto) 7.4, Eosinophils (%) (Auto) 1.3, Basophils (%) (Auto) 1.8, Sodium Level 138, Potassium Level 4.0, Chloride Level 105, Carbon Dioxide Level 25, Anion Gap 8, Blood Urea Nitrogen 17, Creatinine 1.5H, Estimat Glomerular Filtration Rate 56.1, Glucose Level 125H, Hemoglobin A1c 5.8, Uric Acid 6.1, Calcium Level 9.6, Phosphorus Level 2.7, Magnesium Level 2.0, Total Bilirubin 0.3, Aspartate Amino Transf (AST/SGOT) 21, Alanine Aminotransferase (ALT/SGPT) 15, Alkaline Phosphatase 56, Total Protein 7.3, Albumin 3.7, Globulin 3.6, Albumin/Globulin Ratio 1.0, Triglycerides Level 163H, Cholesterol Level 179, LDL Cholesterol 114H, HDL Cholesterol 34L, Cholesterol/HDL Ratio 5.3H, Free Thyroxine 1.15 Height (Feet): 5 Height (Inches): 9.00 Weight (Pounds): 207 General Appearance: no apparent distress Cardiovascular: normal rate, bradycardia Respiratory/Chest: decreased breath sounds Abdomen: soft Kenny Toure MD Aug 16, 2020 12:16
--- NOTE | 2020-08-16 13:06 | Cardiac Electrophysiology PN ---
Assessment/Plan Assessment/Plan 1. Syncope. Etiology is not clear at this time. The patient was only mildly bradycardic. The patient already ruled out for myocardial infarction. Neurology evaluation is pending. Urine tox screen is negative. Carotid ultrasound and an echocardiogram pending 2. History of hypertension. Continue Cozaar 50 mg b.i.d. and p.r.n. clonidine as well as Norvasc 10 mg daily. 3. History of dementia. Subjective Subjective Confused in restraints in SR on tele Objective Last 24 Hour Vital Signs Date Time Temp Pulse Resp B/P (MAP) Pulse Ox O2 Delivery O2 Flow Rate FiO2 08/16/20 09:00 Room Air 08/16/20 08:51 135/82 08/16/20 08:51 64 135/82 08/16/20 08:00 96.1 64 20 135/82 (99) 96 08/16/20 08:00 76 08/16/20 04:00 97.7 56 18 125/76 (92) 99 08/16/20 04:00 48 08/16/20 00:00 54 08/16/20 00:00 97.5 54 18 119/71 (87) 96 08/15/20 21:00 132/83 08/15/20 21:00 Room Air 08/15/20 20:00 58 08/15/20 20:00 97.5 53 18 132/83 (99) 100 08/15/20 16:00 59 08/15/20 16:00 97.7 65 18 150/77 (101) 100 Intake and Output 08/15/20 08/16/20 19:00 07:00 Intake Total 690 ml 110 ml Output Total 550 ml Balance 140 ml 110 ml Intake Oral 690 ml Other 110 ml Output Urine Total 550 ml # Voids 1 Laboratory Tests Test 08/15/20 19:45 08/16/20 08:00 Troponin I 0.000 ng/mL (0.000-0.056) White Blood Count 6.1 K/UL (4.8-10.8) Red Blood Count 4.57 M/UL (4.70-6.10) L Hemoglobin 14.2 G/DL (14.2-18.0) Hematocrit 40.7 % (42.0-52.0) L Mean Corpuscular Volume 89 FL (80-99) Mean Corpuscular Hemoglobin 31.1 PG (27.0-31.0) H Mean Corpuscular Hemoglobin Concent 35.0 G/DL (32.0-36.0) Red Cell Distribution Width 11.4 % (11.6-14.8) L Platelet Count 157 K/UL (150-450) Mean Platelet Volume 7.5 FL (6.5-10.1) Neutrophils (%) (Auto) 51.8 % (45.0-75.0) Lymphocytes (%) (Auto) 37.7 % (20.0-45.0) Monocytes (%) (Auto) 7.4 % (1.0-10.0) Eosinophils (%) (Auto) 1.3 % (0.0-3.0) Basophils (%) (Auto) 1.8 % (0.0-2.0) Sodium Level 138 MMOL/L (136-145) Potassium Level 4.0 MMOL/L (3.5-5.1) Chloride Level 105 MMOL/L (98-107) Carbon Dioxide Level 25 MMOL/L (21-32) Anion Gap 8 mmol/L (5-15) Blood Urea Nitrogen 17 mg/dL (7-18) Creatinine 1.5 MG/DL (0.55-1.30) H Estimat Glomerular Filtration Rate 56.1 mL/min (>60) Glucose Level 125 MG/DL (74-106) H Hemoglobin A1c 5.8 % (4.3-6.0) Uric Acid 6.1 MG/DL (2.6-7.2) Calcium Level 9.6 MG/DL (8.5-10.1) Phosphorus Level 2.7 MG/DL (2.5-4.9) Magnesium Level 2.0 MG/DL (1.8-2.4) Total Bilirubin 0.3 MG/DL (0.2-1.0) Aspartate Amino Transf (AST/SGOT) 21 U/L (15-37) Alanine Aminotransferase (ALT/SGPT) 15 U/L (12-78) Alkaline Phosphatase 56 U/L (46-116) Total Protein 7.3 G/DL (6.4-8.2) Albumin 3.7 G/DL (3.4-5.0) Globulin 3.6 g/dL Albumin/Globulin Ratio 1.0 (1.0-2.7) Triglycerides Level 163 MG/DL (30-150) H Cholesterol Level 179 MG/DL (< 200) LDL Cholesterol 114 mg/dL (<100) H HDL Cholesterol 34 MG/DL (40-60) L Cholesterol/HDL Ratio 5.3 (3.3-4.4) H Free Thyroxine 1.15 NG/DL (0.76-1.46) Objective \HEAD AND NECK: No JVD. LUNGS: Clear. CARDIOVASCULAR: Regular S1 and S2 with no gallop or murmur. ABDOMEN: Soft. EXTREMITIES: No pitting edema. Delvis Ogden MD Aug 16, 2020 13:06
--- NOTE | 2020-08-16 13:56 | Cardiology Report ---
APPROVED REPORT EXAM: Two-dimensional and M-mode echocardiogram with Doppler and color Doppler. INDICATION Syncope M-Mode DIMENSIONS IVSd0.9 (0.7-1.1cm)Left Atrium (MM)4.0 (1.6-4.0cm) LVDd4.4 (3.5-5.6cm)Aortic Root3.6 (2.0-3.7cm) PWd0.9 (0.7-1.1cm)Aortic Cusp Exc.2.0 (1.5-2.0cm) IVSs1.5 cmEPSS0.3 (>1.0cm) LVDs2.8 (2.5-4.0cm) PWs1.5 cm <Conclusion> Normal left ventricular chamber size, systolic function and wall motion. Left ventricular ejection fraction estimated to be 60 %. No evidence of left ventricular hypertrophy. No evidence of pericardial effusion. All other cardiac chamber sizes are within normal limits. Focal aortic valve sclerosis with adequate cusp excursion. Thickened mitral valve leaflets with normal excursion. Mitral annulus and aortic root calcification. Pulmonic valve not well visualized. Normal tricuspid valve structure. IVC is normal in size with physiological collapse. A color flow and spectral Doppler study was performed and revealed: No aortic regurgitation. No mitral regurgitation. Mitral diastolic velocities suggest mild left ventricular diastolic dysfunction (Grade I). Trace tricuspid regurgitation. Tricuspid systolic velocities suggests peak right ventricular systolic pressure of 32 mmHg. No pulmonic regurgitation present.
[2020-08-16] MEDS ORDERED: VITAMIN D3125 MCG PO (14:18)
[2020-08-16] MEDS ORDERED: ESCITALOPRAM OX10 MG ORAL (14:18)
[2020-08-16] MEDS ORDERED: MULTIVITAMINS1 EAC8 ORAL (14:18)
[2020-08-16] MEDS ORDERED: FLEET ENEMA133 ML RECTAL (14:18)
[2020-08-16] MEDS ORDERED: CRANBERRY450 M5 PO (14:18)
--- NOTE | 2020-08-16 14:42 | Cardiology Report ---
APPROVED REPORT EKG Measurement Heart [id number] [place] 172P [id number] <Conclusion> Suspect arm lead reversal, interpretation assumes no reversal Sinus bradycardia Right ventricular hypertrophy Anterolateral infarct, age undetermined ST & T wave abnormality, consider inferior ischemia Abnormal ECG
--- NOTE | 2020-08-16 14:51 | Cardiology Report ---
APPROVED REPORT EKG Measurement Heart [id number] <Conclusion> Sinus bradycardia Cannot rule out Anterior infarct, age undetermined Abnormal ECG
[2020-08-16 16:00] VITALS: BP 141/86
[2020-08-16] MEDS ORDERED: LORazepam 1mg tab ORAL ONE (16:15)
[2020-08-16] MEDS: Memantine 5 MG TAB ORAL SCH (17:37)
[2020-08-16 18:35] LABS: AMMONIA 24 umol/L (11-32)
[2020-08-16 20:00] VITALS: BP 146/83
[2020-08-16] MEDS ORDERED: D5NS 1000ml IV ONE (20:50)
[2020-08-17] VITALS (7 sets, daily range): BP systolic 113–159; BP diastolic 72–92
[2020-08-17 07:12] LABS: BASOPHILS % (AUTO) 1.7 % (0.0-2.0); EOSINOPHILS % (AUTO) 0.2 % (0.0-3.0); HEMATOCRIT 39.6 % (42.0-52.0); HEMOGLOBIN 14.3 G/DL (14.2-18.0); MEAN CORPUSCULAR VOLUME 87 FL (80-99); NEUTROPHILS % (AUTO) 72.2 % (45.0-75.0); PLATELET COUNT 145 K/UL (150-450); RED BLOOD COUNT 4.54 M/UL (4.70-6.10); RED CELL DISTRIBUTION WIDTH 11.1 % (11.6-14.8)
[2020-08-17 07:26] LABS: ANION GAP 10 mmol/L (5-15); BLOOD UREA NITROGEN 11 mg/dL (7-18); CALCIUM 9.2 MG/DL (8.5-10.1); CARBON DIOXIDE 25 MMOL/L (21-32); CHLORIDE 105 MMOL/L (98-107); CREATININE 1.3 MG/DL (0.55-1.30); POTASSIUM 3.6 MMOL/L (3.5-5.1); SODIUM 140 MMOL/L (136-145)
--- NOTE | 2020-08-17 08:45 | Initial Psychiatric Evaluation ---
Psychiatry Consultation Psychiatry Consultation Chief Complaint: Syncope History of Present Illness: 70-year-old male patient he has acute renal failure hypertension COPD altered mental status overall decline in cognition below his baseline secondary to stress of his medical illness as well as attending physician is requested daily psychiatric consultation which are preventing further decline in his cognition he was seen and assessed at bedside still confused disorganized and has altered mental status on lower with this patient had a previous car going to work with this patient to try to improve his cognition closer to his baseline Mental status examination: Mental status semination this is a 70-year-old male appearance is disheveled attitude irritable attitude irritable agitated affect guarded and restricted intellect poor because he has no current events mood depressed anxious motor activity psychomotor agitation attention span is poor orientation x2 which is nonsensical thought process disorganized logical insight judgment is poor Allergies: Coded Allergies: IODINE (Verified Allergy, Unknown, 08/14/20) Medication History Scheduled Amlodipine Besylate (Norvasc), 10 MG ORAL DAILY, (Reported) Cholecalciferol (Vitamin D3) (Vitamin D3), 125 MCG PO QWEEK, (Reported) Cranberry Fruit (Cranberry), 450 MG PO DAILY, (Reported) Docusate Sodium* (Colace*), 100 MG ORAL TWICE A DAY, (Reported) Escitalopram Oxalate (Escitalopram Oxalate*), 10 MG ORAL DAILY, (Reported) Hydrochlorothiazide* (Hydrochlorothiazide*), 12.5 MG ORAL DAILY, (Reported) Memantine Hcl* (Namenda*), 5 MG ORAL TWICE A DAY, (Reported) Multivitamin With Minerals (Multivitamins With Minerals*), 1 TAB ORAL DAILY, (Reported) Risperidone* (Risperdal*), 1 MG PO BID, (Reported) Valsartan (Diovan), 160 MG ORAL DAILY, (Reported) Scheduled PRN Acetaminophen (Tylenol), 650 MG ORAL Q6H PRN for Prn Pain/Headache/Temp > 101, (Reported) Acetaminophen* (Tylenol Extra Strength*), 1,000 MG ORAL Q6H PRN for Mild Pain/Temp > 100.5, (Reported) Bisacodyl (Bisacodyl), 10 MG RC DAILY PRN for Constipation, (Reported) Clonidine Hcl* (Catapres*), 0.1 MG ORAL Q6H PRN for SBP>160, (Reported) Magnesium Hydroxide* (Milk Of Magnesia*), 30 ML ORAL DAILY PRN for Constipation, (Reported) Na Phos,M-B/Na Phos,Di-Ba* (Fleet Enema*), 133 ML RECTAL DAILY PRN for Constipation, (Reported) Discontinued Medications Ascorbic Acid* (Ascorbic Acid*), 500 MG ORAL DAILY, (Reported) Discontinued Reason: Therapy completed Cholecalciferol (Vitamin D3) (Vitamin D3), 50 MCG PO, (Reported) Discontinued Reason: Prescription changed Citalopram Hydrobromide* (Celexa*), 20 MG ORAL DAILY, (Reported) Discontinued Reason: Therapy completed Clonidine Hcl* (Catapres*), 0.1 MG ORAL EVERY 6 HOURS, (Reported) Discontinued Reason: Therapy completed Cranberry Fruit (Cranberry), 500 MG PO, (Reported) Discontinued Reason: Prescription changed Docusate Sodium* (Colace*), 100 MG ORAL DAILY, (Reported) Discontinued Reason: Therapy completed Escitalopram Oxalate (Lexapro), 10 MG ORAL DAILY, (Reported) Discontinued Reason: Prescription changed Hydrochlorothiazide* (Hydrochlorothiazide*), 12.5 MG ORAL DAILY, (Reported) Discontinued Reason: Therapy completed Losartan Potassium* (Losartan Potassium*), 100 MG ORAL DAILY, (Reported) Discontinued Reason: Therapy completed Multivit W-Mn/Fa/Lycop/Lut/Ala (Multi-Betic Tablet), 1 TAB ORAL DAILY, (Reported) Discontinued Reason: Prescription changed Risperidone* (Risperdal*), 0.25 MG ORAL DAILY, (Reported) Discontinued Reason: Therapy completed Objective Data Height (Feet): 5 Height (Inches): 9.00 Weight (Pounds): 207 Assessment/Plan Assessment/Plan: Namenda 10 mg twice a day Lexapro 10 mg once a day Risperdal 1 mg twice a day insight oriented psychotherapy provided while helping him identify on the negative thoughts (negative thoughts to more positive thoughts and help him have a better understanding of his physical and mental condition so that he has better impulse control less anxiety and depression Diagnosis [place] I: 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
[2020-08-17] MEDS: Losartan 50mg tab ORAL SCH ×2 (09:29→21:22)
[2020-08-17] MEDS: Memantine 5 MG TAB ORAL SCH ×2 (09:29→18:10)
[2020-08-17] MEDS: Docusate 100mg cap ORAL SCH ×3 (09:33→18:10)
[2020-08-17] MEDS: Heparin 5000 units/ml inj SUBQ SCH ×2 (09:33→21:23)
--- NOTE | 2020-08-17 09:38 | General Progress Note ---
Subjective Constitutional: Reports: weakness Allergies: Coded Allergies: IODINE (Verified Allergy, Unknown, 08/14/20) All Systems: reviewed and negative except above Subjective calm in bed Objective Last 24 Hour Vital Signs Date Time Temp Pulse Resp B/P (MAP) Pulse Ox O2 Delivery O2 Flow Rate FiO2 08/17/20 09:30 71 128/74 08/17/20 09:29 128/74 08/17/20 04:00 79 08/17/20 04:00 99.8 76 16 156/92 (113) 100 08/17/20 00:00 101.3 87 16 159/90 (113) 97 08/17/20 00:00 83 08/16/20 23:47 99.8 08/16/20 21:00 Room Air 08/16/20 20:41 146/83 08/16/20 20:00 84 08/16/20 20:00 100.0 82 16 146/83 (104) 100 08/16/20 16:44 79 20 139/80 98 08/16/20 16:30 81 20 141/86 98 08/16/20 16:30 81 20 141/86 98 08/16/20 16:00 97.8 81 20 141/86 (104) 98 08/16/20 16:00 79 20 139/80 98 08/16/20 16:00 89 08/16/20 12:00 98.0 77 20 139/80 (99) 98 08/16/20 12:00 79 Intake and Output 08/16/20 08/17/20 19:00 07:00 Intake Total 390 ml Output Total 400 ml Balance -10 ml Intake Oral 390 ml Output Urine Total 400 ml # Bowel Movements 2 Laboratory Tests 08/16/20 18:06: Ammonia 24, Vitamin B12 Level 821, Methylmalonic Acid [Pending], Rapid Plasma Reagin [Pending], Treponema pallidum Ab (FTA-ABS) [Pending] 08/17/20 03:00: Urine Opiates Screen Negative, Urine Barbiturates Screen Negative, Phencyclidine (PCP) Screen Negative, Urine Amphetamines Screen Negative, Urine Benzodiazepines Screen Negative, Urine Cocaine Screen Negative, Urine Marijuana (THC) Screen Negative 08/17/20 05:55: White Blood Count 10.0#, Red Blood Count 4.54L, Hemoglobin 14.3, Hematocrit 39.6L, Mean Corpuscular Volume 87, Mean Corpuscular Hemoglobin 31.5H, Mean Corpuscular Hemoglobin Concent 36.1H, Red Cell Distribution Width 11.1L, Platelet Count 145L, Mean Platelet Volume 7.3, Neutrophils (%) (Auto) 72.2, Lymphocytes (%) (Auto) 17.0L, Monocytes (%) (Auto) 9.0, Eosinophils (%) (Auto) 0.2, Basophils (%) (Auto) 1.7, Sodium Level 140, Potassium Level 3.6, Chloride Level 105, Carbon Dioxide Level 25, Anion Gap 10, Blood Urea Nitrogen 11, Creatinine 1.3, Estimat Glomerular Filtration Rate > 60, Glucose Level 123H, Calcium Level 9.2, Phosphorus Level [Pending], Magnesium Level [Pending], Total Bilirubin [Pending], Direct Bilirubin [Pending], Aspartate Amino Transf (AST/SGOT) [Pending], Alanine Aminotransferase (ALT/SGPT) [Pending], Alkaline Phosphatase [Pending], Total Protein [Pending], Albumin [Pending] Height (Feet): 5 Height (Inches): 9.00 Weight (Pounds): 207 General Appearance: lethargic EENT: normal ENT inspection Neck: normal alignment Cardiovascular: normal peripheral pulses, normal rate, regular rhythm Respiratory/Chest: chest wall non-tender, lungs clear, normal breath sounds Abdomen: normal bowel sounds, non tender, soft Extremities: normal inspection Edema: no edema noted Arm (L), no edema noted Arm (R), no edema noted Leg (L), no edema noted Leg (R), no edema noted Pedal (L), no edema noted Pedal (R), no edema noted Generalized Neurologic: motor weakness Skin: normal pigmentation, warm/dry Assessment/Plan Problem List: (1) HTN (hypertension) ICD Codes: I10 - Essential (primary) hypertension SNOMED: 16643750 (2) ARF (acute renal failure) ICD Codes: N17.9 - Acute kidney failure, unspecified SNOMED: 42663689 (3) Weak ICD Codes: R53.1 - Weakness SNOMED: 44341227 (4) AMS (altered mental status) ICD Codes: R41.82 - Altered mental status, unspecified SNOMED: 221278007 (5) Anemia ICD Codes: D64.9 - Anemia, unspecified SNOMED: 495284690 (6) COPD (chronic obstructive pulmonary disease) ICD Codes: J44.9 - Chronic obstructive pulmonary disease, unspecified SNOMED: 53931136 (7) Behavioral change ICD Codes: R46.89 - Other symptoms and signs involving appearance and behavior SNOMED: 049133281 (8) Altered mental status ICD Codes: R41.82 - Altered mental status, unspecified SNOMED: 923522905 (9) Syncope ICD Codes: R55 - Syncope and collapse SNOMED: 984782753 Status: unchanged Assessment/Plan: pt diet cardio neuro eval cbc bmp am aru Dallas Blanchard DO Aug 17, 2020 09:38
--- NOTE | 2020-08-17 09:50 | Cardiac Electrophysiology PN ---
Assessment/Plan Assessment/Plan 1. Syncope. Etiology is not clear at this time. The patient was only mildly bradycardic. The patient already ruled out for myocardial infarction. Neurology evaluation is pending. Urine tox screen is negative. Carotid ultrasound pending. Echocardiogram NL ef 60% and no 2. History of hypertension. Continue Cozaar 50 mg b.i.d. and Norvasc 10 mg daily. 3. History of dementia. Subjective Subjective Confused in restraints in SR in 70s on tele. No events overnight Objective Last 24 Hour Vital Signs Date Time Temp Pulse Resp B/P (MAP) Pulse Ox O2 Delivery O2 Flow Rate FiO2 08/17/20 09:30 71 128/74 08/17/20 09:29 128/74 08/17/20 04:00 79 08/17/20 04:00 99.8 76 16 156/92 (113) 100 08/17/20 00:00 101.3 87 16 159/90 (113) 97 08/17/20 00:00 83 08/16/20 23:47 99.8 08/16/20 21:00 Room Air 08/16/20 20:41 146/83 08/16/20 20:00 84 08/16/20 20:00 100.0 82 16 146/83 (104) 100 08/16/20 16:44 79 20 139/80 98 08/16/20 16:30 81 20 141/86 98 08/16/20 16:30 81 20 141/86 98 08/16/20 16:00 97.8 81 20 141/86 (104) 98 08/16/20 16:00 79 20 139/80 98 08/16/20 16:00 89 08/16/20 12:00 98.0 77 20 139/80 (99) 98 08/16/20 12:00 79 Intake and Output 08/16/20 08/17/20 19:00 07:00 Intake Total 390 ml Output Total 400 ml Balance -10 ml Intake Oral 390 ml Output Urine Total 400 ml # Bowel Movements 2 Laboratory Tests Test 08/16/20 18:06 08/17/20 03:00 08/17/20 05:55 Ammonia 24 umol/L (11-32) Vitamin B12 Level 821 PG/ML (193-986) Methylmalonic Acid Pending Rapid Plasma Reagin Pending Treponema pallidum Ab (FTA-ABS) Pending Urine Opiates Screen Negative (NEGATIVE) Urine Barbiturates Screen Negative (NEGATIVE) Phencyclidine (PCP) Screen Negative (NEGATIVE) Urine Amphetamines Screen Negative (NEGATIVE) Urine Benzodiazepines Screen Negative (NEGATIVE) Urine Cocaine Screen Negative (NEGATIVE) Urine Marijuana (THC) Screen Negative (NEGATIVE) White Blood Count 10.0 K/UL (4.8-10.8) # Red Blood Count 4.54 M/UL (4.70-6.10) L Hemoglobin 14.3 G/DL (14.2-18.0) Hematocrit 39.6 % (42.0-52.0) L Mean Corpuscular Volume 87 FL (80-99) Mean Corpuscular Hemoglobin 31.5 PG (27.0-31.0) H Mean Corpuscular Hemoglobin Concent 36.1 G/DL (32.0-36.0) H Red Cell Distribution Width 11.1 % (11.6-14.8) L Platelet Count 145 K/UL (150-450) L Mean Platelet Volume 7.3 FL (6.5-10.1) Neutrophils (%) (Auto) 72.2 % (45.0-75.0) Lymphocytes (%) (Auto) 17.0 % (20.0-45.0) L Monocytes (%) (Auto) 9.0 % (1.0-10.0) Eosinophils (%) (Auto) 0.2 % (0.0-3.0) Basophils (%) (Auto) 1.7 % (0.0-2.0) Sodium Level 140 MMOL/L (136-145) Potassium Level 3.6 MMOL/L (3.5-5.1) Chloride Level 105 MMOL/L (98-107) Carbon Dioxide Level 25 MMOL/L (21-32) Anion Gap 10 mmol/L (5-15) Blood Urea Nitrogen 11 mg/dL (7-18) Creatinine 1.3 MG/DL (0.55-1.30) Estimat Glomerular Filtration Rate > 60 mL/min (>60) Glucose Level 123 MG/DL (74-106) H Calcium Level 9.2 MG/DL (8.5-10.1) Phosphorus Level Pending Magnesium Level Pending Total Bilirubin Pending Direct Bilirubin Pending Aspartate Amino Transf (AST/SGOT) Pending Alanine Aminotransferase (ALT/SGPT) Pending Alkaline Phosphatase Pending Total Protein Pending Albumin Pending Microbiology Date/Time Source Procedure Growth Status 08/15/20 07:30 Nasal Nares MRSA Culture - Final NO METHICILLIN RESISTANT STAPH AUREUS... Complete Objective HEAD AND NECK: No JVD. LUNGS: Clear. CARDIOVASCULAR: Regular S1 and S2 with no gallop or murmur. ABDOMEN: Soft. EXTREMITIES: No pitting edema. Delvis Ogden MD Aug 17, 2020 09:50
[2020-08-17 10:10] LABS: ALANINE AMINOTRANSFERASE 18 U/L (12-78); ALBUMIN 3.4 G/DL (3.4-5.0); ALKALINE PHOSPHATASE 59 U/L (46-116); ASPARTATE AMINO TRANSFERASE 19 U/L (15-37); BILIRUBIN,DIRECT < 0.1 MG/DL (0.0-0.3); BILIRUBIN,TOTAL 0.5 MG/DL (0.2-1.0); PHOSPHORUS 3.1 MG/DL (2.5-4.9)
--- NOTE | 2020-08-17 12:15 | Consultation ---
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 He was admitted with a chief complaint of altered mental status. I was asked to see the patient because of altered mental status. It is unclear from the history when the patient started to have altered mental status. He has an acute renal failure and COPD. He was slightly completely confused, but calm. He was admitted to this hospital. Head CT scan of the brain revealed no acute infarct, hemorrhage, mass or edema. There are chronic small vessel changes noted. Chest x-ray was pretty much unremarkable. The patient was anemic with a normal white count. Initial platelet count was slightly low at 136,000. Urinalysis is normal. Chemistries revealed normal BUN, slightly elevated creatinine. Rest of the electrolytes were normal. Liver functions were normal. Triglycerides were elevated. Free T4 was 1.15. The carotid duplex scan yesterday revealed no hemodynamic or any significant stenosis in both internal carotid arteries, antegrade flow in the left vertebral artery. Right vertebral artery was not visualized. The patient's EKG revealed sinus bradycardia, cannot rule out anterior infarct, age indeterminate. The patient also had a [facility]opal episode [facility]. The patient was confused and could not give any history at all. His medications in the penitentiary are acetaminophen, clonidine 0.1 mg, docusate sodium, Lexapro, hydrochlorothiazide, memantine 10 mg twice daily, risperidone 1 mg a day, and valsartan 160 mg a day, vitamin D3. The patient was seen by Dr. 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 The patient's mental status according to Dr. Hernandez was normal, had psychomotor agitation, . He also saw Dr. Ogden, editor trade journal, who diagnosed with syncope, etiology unknown. The patient also saw Dr. Kenny Toure, pathology lab technician. The patient is placed on amlodipine 10 mg daily, Dulcolax, clonidine 0.1 mg q.4 hours, , heparin, lorazepam, Namenda 10 mg b.i.d., and risperidone. The patient's history is unobtainable neurologic disease PAST MEDICAL HISTORY/PAST MEDICAL ILLNESSES: See above. MEDICATIONS: See above. ALLERGIES: He is allergic to iodine. FAMILY HISTORY: Unavailable. SOCIAL HISTORY: He denied recent smoking, no alcohol use, no illegal drug use. SURGERIES: Cannot be obtained. REVIEW OF SYSTEMS: Cannot be obtained. PHYSICAL EXAMINATION: GENERAL: The patient is a well-developed, obese male, lying in bed. He is in restraints and talking to himself. The patient is lethargic. VITAL SIGNS: Blood pressure is 139/80, pulse is 77, temperature is 98 degrees. HEENT: grossly intact difficult . He can move it around. LUNGS: Decreased breath sounds bilaterally. CARDIOVASCULAR: Heart tones are distant. Could not . ABDOMEN: Obese. Bowel sounds are intact. There are no tenderness, masses or organomegaly appreciated. EXTREMITIES: Basically intact. NEUROLOGIC: MENTAL STATUS: The patient is lethargic. Could open his eyes to commands. He is oriented to 1 sphere only. He did not know the date, did not know where he was. Thought he was at home. Judgment could not be tested. Affect was appropriate to his mood, which was agitated and angry. Intellect could not be tested. Orientation, see above. Memory, I asked him his birthday, he would not clearly give me any answer. Immediate recall could not be done. Recent recall could not be tested. Language function is spoken speech is basically fluent. He is talking to himself. He is agitated, combative, trying to fight me off . CRANIAL NERVE EXAMINATION:: Cranial Nerve II: Visual [place] are probably intact to confrontation. Cranial Nerves III, IV, and : Eyes were in the midline. Pupils are approximately 4 mm, round, and reactive. CRANIAL NERVE V: Corneas are intact bilaterally. CRANIAL NERVE VII: Facial strength appeared to be symmetric. Cranial Nerve VIII through XII: Could not be tested except he did stick out his tongue to demand. MUSCLE EXAMINATION: He can move all 4 extremities. He had paratonia in all extremities. Muscle bulk is basically symmetrical. REFLEXES: A +1 in the upper extremities, probably 0 at the knees and the ankles. Babinski signs could not be obtained because of withdrawal. SENSORY EXAMINATION: Sensation is intact pain in the upper extremities. IMPRESSION: This patient has history of dementia, probably Alzheimer disease. He also has confusion. I reviewed some of the medical records dated back to 2018. cardiac syncopal episode where stroke pattern is intact given the sinus bradycardia, abnormal EKG. The echocardiogram reveals an ejection fraction of 60% . The patient had a pulmonary embolus, acute myocardial infarction. At this time, he is anemic but his anemia is not severe enough. His mental status abnormality may be related to the memantine, has some renal insufficiency seen and therefore memantine should be reduced to not more than 10 mg per day. . His electrolytes seem to be okay. On his thyroid function, the patient's T4 is within normal range. We would probably get a serum ammonia, although liver function tests are normal. I doubt that he was hepatic encephalopathy. Iron deficiency is an acute stroke in the territory of the left temporal or parietal lobes or in the thalamus causing confusional state . The patient does not seem to have any seizures at this time. ASSESSMENT AND PLAN: 1. Reduce memantine to 10 mg a day and 5 mg b.i.d. and we had to reduce . 2. EEG. 3. Serum ammonia, B12, methylmalonic acid level, RPR, and FTA. 4. herpes simplex encephalitis is not likely, given the lack of fever, given the low white count and given the fact that his mental status probably will not change much. His MRI of the brain might be helpful 1 mg of lorazepam IV prior to the MRI. . Arnold Li MD DR: MARTY JOB#: [id number] CC:
--- NOTE | 2020-08-17 12:41 | Nephrology Progress Note ---
Assessment/Plan Problem List: (1) ARF (acute renal failure) (2) Syncope (3) Dehydration (4) Electrolyte imbalance (5) HTN (hypertension) (6) Anemia Assessment Acute on chronic renal failure, creatinine of 1.7 down to 1.5 Underlying dehydration Syncope Toxic metabolic encephalopathy Mild anemia HTN Hypokalemia Plan August 17: Labs reviewed. Renal parameters stable. Blood pressure stable. Medication list reviewed. Continue disease. Previously: Hold IV fluid Hold diuretics Potassium supplement, as needed Adjust blood pressure medication with proper parameters Monitor renal parameters Per consultants Urine for tox screen, still pending Assessment of psych medication per psychiatrist with regard to to relationship with syncopal episode Subjective ROS Limited/Unobtainable: No Objective Objective Last 24 Hour Vital Signs Date Time Temp Pulse Resp B/P (MAP) Pulse Ox O2 Delivery O2 Flow Rate FiO2 08/17/20 09:30 71 128/74 08/17/20 09:29 128/74 08/17/20 09:00 Room Air 08/17/20 08:00 79 08/17/20 08:00 97.9 71 20 128/74 (92) 99 08/17/20 04:00 79 08/17/20 04:00 99.8 76 16 156/92 (113) 100 08/17/20 00:00 101.3 87 16 159/90 (113) 97 08/17/20 00:00 83 08/16/20 23:47 99.8 08/16/20 21:00 Room Air 08/16/20 20:41 146/83 08/16/20 20:00 84 08/16/20 20:00 100.0 82 16 146/83 (104) 100 08/16/20 16:44 79 20 139/80 98 08/16/20 16:30 81 20 141/86 98 08/16/20 16:30 81 20 141/86 98 08/16/20 16:00 97.8 81 20 141/86 (104) 98 08/16/20 16:00 79 20 139/80 98 08/16/20 16:00 89 Intake and Output 08/16/20 08/17/20 19:00 07:00 Intake Total 390 ml Output Total 400 ml Balance -10 ml Intake Oral 390 ml Output Urine Total 400 ml # Bowel Movements 2 Laboratory Tests 08/16/20 18:06: Ammonia 24, Vitamin B12 Level 821, Methylmalonic Acid [Pending], Rapid Plasma Reagin [Pending], Treponema pallidum Ab (FTA-ABS) [Pending] 08/17/20 03:00: Urine Opiates Screen Negative, Urine Barbiturates Screen Negative, Phencyclidine (PCP) Screen Negative, Urine Amphetamines Screen Negative, Urine Benzodiazepines Screen Negative, Urine Cocaine Screen Negative, Urine Marijuana (THC) Screen Negative 08/17/20 05:55: White Blood Count 10.0#, Red Blood Count 4.54L, Hemoglobin 14.3, Hematocrit 39.6L, Mean Corpuscular Volume 87, Mean Corpuscular Hemoglobin 31.5H, Mean Corpuscular Hemoglobin Concent 36.1H, Red Cell Distribution Width 11.1L, Platelet Count 145L, Mean Platelet Volume 7.3, Neutrophils (%) (Auto) 72.2, Lymphocytes (%) (Auto) 17.0L, Monocytes (%) (Auto) 9.0, Eosinophils (%) (Auto) 0.2, Basophils (%) (Auto) 1.7, Sodium Level 140, Potassium Level 3.6, Chloride Level 105, Carbon Dioxide Level 25, Anion Gap 10, Blood Urea Nitrogen 11, Cr eatinine 1.3, Estimat Glomerular Filtration Rate > 60, Glucose Level 123H, Calcium Level 9.2, Phosphorus Level 3.1, Magnesium Level 1.9, Total Bilirubin 0.5, Direct Bilirubin < 0.1, Aspartate Amino Transf (AST/SGOT) 19, Alanine Aminotransferase (ALT/SGPT) 18, Alkaline Phosphatase 59, Total Protein 6.6, Albumin 3.4 Height (Feet): 5 Height (Inches): 9.00 Weight (Pounds): 207 General Appearance: no apparent distress Cardiovascular: normal rate Respiratory/Chest: decreased breath sounds Abdomen: soft Objective No change Kenny Toure MD Aug 17, 2020 12:41
[2020-08-17] MEDS ORDERED: LORazepam Inj 2mg/ml 1ml IV PRN (16:15)
--- NOTE | 2020-08-17 18:11 | Diagnostic Imaging Report ---
Indication: Altered mental status Technique: sagittal T1 fast spin echo, axial T1 FLAIR, axial T2 FLAIR, axial T2 FS PROPELLER, axial T2* GRE, axial diffusion weighted images. ADC and exponential ADC maps generated Comparison: No comparison MRIs. Reference made to brain CT 08/14/2020 Findings: Exam is somewhat limited, due to slight motion artifact as well as inability to use the head coil due to the size of the patient's head. No abnormal areas of restricted diffusion to suggest acute infarction. No acute hemorrhage or edema. No mass effect nor midline shift. There is age-related enlargement of the ventricles and extra-axial CSF spaces.. Visualized orbits and sinuses are unremarkable. The vascular flow voids are preserved Impression: Age-related volume loss Negative for acute intracranial bleed or mass effect or infarct
[2020-08-18] VITALS: BP 100/66
[2020-08-18 04:00] VITALS: BP 103/63
[2020-08-18 07:27] LABS: BASOPHILS % (AUTO) 1.5 % (0.0-2.0); EOSINOPHILS % (AUTO) 1.3 % (0.0-3.0); HEMATOCRIT 37.9 % (42.0-52.0); HEMOGLOBIN 13.2 G/DL (14.2-18.0); LYMPHOCYTES % (AUTO) 27.8 % (20.0-45.0); MEAN CORPUSCULAR VOLUME 90 FL (80-99); MONOCYTES % (AUTO) 10.5 % (1.0-10.0); NEUTROPHILS % (AUTO) 58.9 % (45.0-75.0); PLATELET COUNT 135 K/UL (150-450); RED BLOOD COUNT 4.23 M/UL (4.70-6.10); RED CELL DISTRIBUTION WIDTH 11.7 % (11.6-14.8); WHITE BLOOD COUNT 9.1 K/UL (4.8-10.8)
[2020-08-18 07:41] LABS: CALCIUM 8.9 MG/DL (8.5-10.1); CREATININE 1.5 MG/DL (0.55-1.30); POTASSIUM 3.9 MMOL/L (3.5-5.1)
[2020-08-18 08:00] VITALS: BP 103/60
--- NOTE | 2020-08-18 08:56 | Nephrology Progress Note ---
Assessment/Plan Problem List: (1) ARF (acute renal failure) (2) Syncope (3) Dehydration (4) Electrolyte imbalance (5) HTN (hypertension) (6) Anemia Assessment Acute on chronic renal failure, creatinine of 1.7 down to 1.5 Underlying dehydration Syncope Toxic metabolic encephalopathy Mild anemia HTN Hypokalemia Plan August 18: Lab reviewed. Serum creatinine 1.5. Blood pressure 100 to 105 mm hg systolic. Blood pressure medication adjusted. IV fluid bolus given. Continue to monitor renal parameters. August 17: Labs reviewed. Renal parameters stable. Blood pressure stable. Medication list reviewed. Continue disease. Previously: Hold IV fluid Hold diuretics Potassium supplement, as needed Adjust blood pressure medication with proper parameters Monitor renal parameters Per consultants Urine for tox screen, still pending Assessment of psych medication per psychiatrist with regard to to relationship with syncopal episode Subjective ROS Limited/Unobtainable: No Constitutional: Reports: malaise Objective Objective Last 24 Hour Vital Signs Date Time Temp Pulse Resp B/P (MAP) Pulse Ox O2 Delivery O2 Flow Rate FiO2 08/18/20 08:00 98.7 86 19 103/60 (74) 97 08/18/20 04:54 98.8 08/18/20 04:00 61 08/18/20 04:00 100.0 62 18 103/63 (76) 96 08/18/20 00:00 99.1 68 18 100/66 (77) 96 08/18/20 00:00 82 08/17/20 21:22 113/69 08/17/20 21:00 Room Air 08/17/20 20:00 97.0 85 16 113/72 (86) 98 08/17/20 20:00 95 08/17/20 16:45 78 20 145/73 99 08/17/20 16:18 84 20 125/79 100 08/17/20 16:00 99.9 78 20 145/73 (97) 99 08/17/20 16:00 75 08/17/20 13:22 99.7 84 18 125/79 (94) 100 08/17/20 12:00 99.7 84 18 125/79 (94) 99 08/17/20 12:00 83 08/17/20 09:30 71 128/74 08/17/20 09:29 128/74 08/17/20 09:00 Room Air Intake and Output 08/17/20 08/18/20 19:00 07:00 Intake Total 750 ml Output Total 1200 ml 400 ml Balance -450 ml -400 ml Intake Oral 750 ml Output Urine Total 1200 ml 400 ml # Voids 1 # Bowel Movements 3 Current Medications Medications (Trade) Dose Ordered Sig/Oanh Route PRN Reason Start Time Stop Time Status Last Admin Dose Admin Acetaminophen (Tylenol) 500 mg Q6H PRN ORAL MOD 08/15/20 02:15 09/14/20 02:14 Acetaminophen (Tylenol) 650 mg Q6H PRN ORAL Mild Pain (Pain Scale 1-3) 08/15/20 02:15 09/14/20 02:14 08/18/20 04:24 Amlodipine Besylate (Norvasc) 10 mg DAILY ORAL 08/15/20 09:00 09/14/20 08:59 08/17/20 09:30 Bisacodyl (Dulcolax) 10 mg DAILYPRN PRN RECTAL Constipation 08/15/20 02:15 11/13/20 02:14 Clonidine HCl (Catapres Tab) 0.1 mg Q4H PRN ORAL SBP>165 08/15/20 15:15 11/13/20 02:14 Docusate Sodium (Colace) 100 mg THREE TIMES A DAY ORAL 08/16/20 13:00 09/15/20 12:59 08/17/20 18:10 Escitalopram Oxalate (Lexapro) 10 mg DAILY ORAL 08/15/20 09:00 09/14/20 08:59 08/17/20 09:28 Heparin Sodium (Porcine) (Heparin 5000 units/ml) 5,000 units EVERY 12 HOURS SUBQ 08/15/20 09:00 09/29/20 08:59 08/17/20 21:23 Lorazepam (Ativan 2mg/ml 1ml) 1 mg ONCE PRN IV preprocedure 08/17/20 16:15 08/18/20 23:59 08/17/20 16:18 Lorazepam (Ativan) 0.5 mg Q6H PRN ORAL For Anxiety 08/15/20 16:15 08/22/20 16:14 08/16/20 16:00 Losartan Potassium (Cozaar) 50 mg EVERY 12 HOURS ORAL 08/15/20 21:00 09/14/20 20:59 08/17/20 21:22 Magnesium Hydroxide (Mom) 30 ml DAILYPRN PRN ORAL Constipation 08/15/20 02:15 09/14/20 02:14 Memantine (Namenda) 5 mg BID ORAL 08/16/20 18:00 09/14/20 08:59 08/17/20 18:10 Pantoprazole (Protonix) 40 mg EVERY 12 HOURS ORAL 08/16/20 21:00 09/15/20 20:59 08/17/20 21:21 Risperidone (RisperDAL) 1 mg BID ORAL 08/15/20 09:00 09/29/20 08:59 08/17/20 18:10 Laboratory Tests 08/18/20 06:21: White Blood Count 9.1, Red Blood Count 4.23L, Hemoglobin 13.2L, Hematocrit 37.9L , Mean Corpuscular Volume 90, Mean Corpuscular Hemoglobin 31.2H, Mean Corpuscular Hemoglobin Concent 34.9, Red Cell Distribution Width 11.7, Platelet Count 135L, Mean Platelet Volume 7.0, Neutrophils (%) (Auto) 58.9, Lymphocytes (%) (Auto) 27.8, Monocytes (%) (Auto) 10.5H, Eosinophils (%) (Auto) 1.3, Basophils (%) (Auto) 1.5, Sodium Level 141, Potassium Level 3.9, Chloride Level 107, Carbon Dioxide Level 26, Anion Gap 8, Blood Urea Nitrogen 15, Creatinine 1.5H, Estimat Glomerular Filtration Rate 56.1, Glucose Level 113H, Calcium Level 8.9 Height (Feet): 5 Height (Inches): 9.00 Weight (Pounds): 207 General Appearance: no apparent distress Respiratory/Chest: decreased breath sounds Abdomen: soft, distended Objective No change Kenny Toure MD Aug 18, 2020 08:56
[2020-08-18] MEDS: Heparin 5000 units/ml inj SUBQ SCH ×2 (09:00→20:07)
[2020-08-18] MEDS: Memantine 5 MG TAB ORAL SCH ×2 (09:30→17:30)
[2020-08-18] MEDS: Docusate 100mg cap ORAL SCH ×3 (09:30→17:30)
--- NOTE | 2020-08-18 09:46 | Initial Psychiatric Evaluation ---
Psychiatry Consultation Psychiatry Consultation Chief Complaint: Syncope History of Present Illness: There is a 70-year-old male patient is got altered mental status confusion and declining cognition below his baseline he also has syncopal episodes and he also has hypertension and it causing a decline in cognition below his baseline as well as attending physician is requested daily psychiatric consultation in hopes that psychiatry can improve his cognition closer to his baseline release prevent further decline in his cognition Mental status examination: This is a 70-year-old male whose appearance is disheveled at irritable agitated affect guarded strict intellect poor mood depressed anxious motor activity psychomotor agitation attention is poor orientation x3 speech is low volume slurred thought process disorganized logical insight judgment poor Allergies: Coded Allergies: IODINE (Verified Allergy, Unknown, 08/14/20) Medication History Scheduled Amlodipine Besylate (Norvasc), 10 MG ORAL DAILY, (Reported) Cholecalciferol (Vitamin D3) (Vitamin D3), 125 MCG PO QWEEK, (Reported) Cranberry Fruit (Cranberry), 450 MG PO DAILY, (Reported) Docusate Sodium* (Colace*), 100 MG ORAL TWICE A DAY, (Reported) Escitalopram Oxalate (Escitalopram Oxalate*), 10 MG ORAL DAILY, (Reported) Hydrochlorothiazide* (Hydrochlorothiazide*), 12.5 MG ORAL DAILY, (Reported) Memantine Hcl* (Namenda*), 5 MG ORAL TWICE A DAY, (Reported) Multivitamin With Minerals (Multivitamins With Minerals*), 1 TAB ORAL DAILY, (Reported) Risperidone* (Risperdal*), 1 MG PO BID, (Reported) Valsartan (Diovan), 160 MG ORAL DAILY, (Reported) Scheduled PRN Acetaminophen (Tylenol), 650 MG ORAL Q6H PRN for Prn Pain/Headache/Temp > 101, (Reported) Acetaminophen* (Tylenol Extra Strength*), 1,000 MG ORAL Q6H PRN for Mild Pain/Temp > 100.5, (Reported) Bisacodyl (Bisacodyl), 10 MG RC DAILY PRN for Constipation, (Reported) Clonidine Hcl* (Catapres*), 0.1 MG ORAL Q6H PRN for SBP>160, (Reported) Magnesium Hydroxide* (Milk Of Magnesia*), 30 ML ORAL DAILY PRN for Constipation, (Reported) Na Phos,M-B/Na Phos,Di-Ba* (Fleet Enema*), 133 ML RECTAL DAILY PRN for Constipation, (Reported) Discontinued Medications Ascorbic Acid* (Ascorbic Acid*), 500 MG ORAL DAILY, (Reported) Discontinued Reason: Therapy completed Cholecalciferol (Vitamin D3) (Vitamin D3), 50 MCG PO, (Reported) Discontinued Reason: Prescription changed Citalopram Hydrobromide* (Celexa*), 20 MG ORAL DAILY, (Reported) Discontinued Reason: Therapy completed Clonidine Hcl* (Catapres*), 0.1 MG ORAL EVERY 6 HOURS, (Reported) Discontinued Reason: Therapy completed Cranberry Fruit (Cranberry), 500 MG PO, (Reported) Discontinued Reason: Prescription changed Docusate Sodium* (Colace*), 100 MG ORAL DAILY, (Reported) Discontinued Reason: Therapy completed Escitalopram Oxalate (Lexapro), 10 MG ORAL DAILY, (Reported) Discontinued Reason: Prescription changed Hydrochlorothiazide* (Hydrochlorothiazide*), 12.5 MG ORAL DAILY, (Reported) Discontinued Reason: Therapy completed Losartan Potassium* (Losartan Potassium*), 100 MG ORAL DAILY, (Reported) Discontinued Reason: Therapy completed Multivit W-Mn/Fa/Lycop/Lut/Ala (Multi-Betic Tablet), 1 TAB ORAL DAILY, (Reported) Discontinued Reason: Prescription changed Risperidone* (Risperdal*), 0.25 MG ORAL DAILY, (Reported) Discontinued Reason: Therapy completed Objective Data Height (Feet): 5 Height (Inches): 9.00 Weight (Pounds): 207 Assessment/Plan Assessment/Plan: Namenda 10 mg twice a day Lexapro 10 mg once a day Risperdal 1 mg twice a day insight oriented psychotherapy provided while helping him identify on the negative thoughts (negative thoughts to more positive thoughts and help him have a better understanding of his physical and mental condition so that he has better impulse control less anxiety and depression Diagnosis [place] [facility]: 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
--- NOTE | 2020-08-18 10:19 | Consultation ---
History of Present Illness General Date patient seen: Aug 18, 2020 Chief Complaint: Syncope Reason for Consultation: Diarrhea Present Illness HPI Mr. Hernandez is a 70 yo male with PMHx of HTN, COPD, Renal failure, paranoid schizophrenia and psychosis who [facility] and hypotension. He is still confused so most of the history was obtained from the notes. Per nurse he is more awake now. The patient says that he is not sleeping well but has no pain. The patient know that he had had some diarrhea but cant describe it. He is not sure how he got to the hospital. ID was consulted for dairrhea PMHx/PSHx HTN COPD Renal failure Paranoid schizophrenia Psychosis SocHx No E/T/D FamHx Unable to obtain Allergies: Coded Allergies: IODINE (Verified Allergy, Unknown, 08/14/20) Medication History Scheduled Amlodipine Besylate (Norvasc), 10 MG ORAL DAILY, (Reported) Cholecalciferol (Vitamin D3) (Vitamin D3), 125 MCG PO QWEEK, (Reported) Cranberry Fruit (Cranberry), 450 MG PO DAILY, (Reported) Docusate Sodium* (Colace*), 100 MG ORAL TWICE A DAY, (Reported) Escitalopram Oxalate (Escitalopram Oxalate*), 10 MG ORAL DAILY, (Reported) Hydrochlorothiazide* (Hydrochlorothiazide*), 12.5 MG ORAL DAILY, (Reported) Memantine Hcl* (Namenda*), 5 MG ORAL TWICE A DAY, (Reported) Multivitamin With Minerals (Multivitamins With Minerals*), 1 TAB ORAL DAILY, (Reported) Risperidone* (Risperdal*), 1 MG PO BID, (Reported) Valsartan (Diovan), 160 MG ORAL DAILY, (Reported) Scheduled PRN Acetaminophen (Tylenol), 650 MG ORAL Q6H PRN for Prn Pain/Headache/Temp > 101, (Reported) Acetaminophen* (Tylenol Extra Strength*), 1,000 MG ORAL Q6H PRN for Mild Pain/Temp > 100.5, (Reported) Bisacodyl (Bisacodyl), 10 MG RC DAILY PRN for Constipation, (Reported) Clonidine Hcl* (Catapres*), 0.1 MG ORAL Q6H PRN for SBP>160, (Reported) Magnesium Hydroxide* (Milk Of Magnesia*), 30 ML ORAL DAILY PRN for Constipation, (Reported) Na Phos,M-B/Na Phos,Di-Ba* (Fleet Enema*), 133 ML RECTAL DAILY PRN for Constipation, (Reported) Discontinued Medications Ascorbic Acid* (Ascorbic Acid*), 500 MG ORAL DAILY, (Reported) Discontinued Reason: Therapy completed Cholecalciferol (Vitamin D3) (Vitamin D3), 50 MCG PO, (Reported) Discontinued Reason: Prescription changed Citalopram Hydrobromide* (Celexa*), 20 MG ORAL DAILY, (Reported) Discontinued Reason: Therapy completed Clonidine Hcl* (Catapres*), 0.1 MG ORAL EVERY 6 HOURS, (Reported) Discontinued Reason: Therapy completed Cranberry Fruit (Cranberry), 500 MG PO, (Reported) Discontinued Reason: Prescription changed Docusate Sodium* (Colace*), 100 MG ORAL DAILY, (Reported) Discontinued Reason: Therapy completed Escitalopram Oxalate (Lexapro), 10 MG ORAL DAILY, (Reported) Discontinued Reason: Prescription changed Hydrochlorothiazide* (Hydrochlorothiazide*), 12.5 MG ORAL DAILY, (Reported) Discontinued Reason: Therapy completed Losartan Potassium* (Losartan Potassium*), 100 MG ORAL DAILY, (Reported) Discontinued Reason: Therapy completed Multivit W-Mn/Fa/Lycop/Lut/Ala (Multi-Betic Tablet), 1 TAB ORAL DAILY, (Reported) Discontinued Reason: Prescription changed Risperidone* (Risperdal*), 0.25 MG ORAL DAILY, (Reported) Discontinued Reason: Therapy completed Patient History Healthcare decision maker Resuscitation status Advanced Directive on File Review of Systems ROS Narrative 12 point ROS negative except as noted in the HPI ( Note patient could report current symptoms only) Physical Exam Physical Exam Narrative GEN: NAD on RA HEENT: NCAT, MMM, EOMI, No scleral icterus Neck: Supple no LAD HEART: RRR, S1, S2 PULM: CTAB, No W ABD: Soft NT, ND, +BS EXT: No C/C/E NEURO: A/O x 1 No focal deficits Last 24 Hour Vital Signs Date Time Temp Pulse Resp B/P (MAP) Pulse Ox O2 Delivery O2 Flow Rate FiO2 08/18/20 08:00 98.7 86 19 103/60 (74) 97 08/18/20 04:54 98.8 08/18/20 04:00 61 08/18/20 04:00 100.0 62 18 103/63 (76) 96 08/18/20 00:00 99.1 68 18 100/66 (77) 96 08/18/20 00:00 82 08/17/20 21:22 113/69 08/17/20 21:00 Room Air 08/17/20 20:00 97.0 85 16 113/72 (86) 98 08/17/20 20:00 95 08/17/20 16:45 78 20 145/73 99 08/17/20 16:18 84 20 125/79 100 08/17/20 16:00 99.9 78 20 145/73 (97) 99 08/17/20 16:00 75 08/17/20 13:22 99.7 84 18 125/79 (94) 100 08/17/20 12:00 99.7 84 18 125/79 (94) 99 08/17/20 12:00 83 Intake and Output 08/17/20 08/18/20 18:59 06:59 Intake Total 750 ml Output Total 1200 ml 400 ml Balance -450 ml -400 ml Intake Oral 750 ml Output Urine Total 1200 ml 400 ml # Voids 1 # Bowel Movements 3 Laboratory Tests Test 08/18/20 06:21 White Blood Count 9.1 K/UL (4.8-10.8) Red Blood Count 4.23 M/UL (4.70-6.10) L Hemoglobin 13.2 G/DL (14.2-18.0) L Hematocrit 37.9 % (42.0-52.0) L Mean Corpuscular Volume 90 FL (80-99) Mean Corpuscular Hemoglobin 31.2 PG (27.0-31.0) H Mean Corpuscular Hemoglobin Concent 34.9 G/DL (32.0-36.0) Red Cell Distribution Width 11.7 % (11.6-14.8) Platelet Count 135 K/UL (150-450) L Mean Platelet Volume 7.0 FL (6.5-10.1) Neutrophils (%) (Auto) 58.9 % (45.0-75.0) Lymphocytes (%) (Auto) 27.8 % (20.0-45.0) Monocytes (%) (Auto) 10.5 % (1.0-10.0) H Eosinophils (%) (Auto) 1.3 % (0.0-3.0) Basophils (%) (Auto) 1.5 % (0.0-2.0) Sodium Level 141 MMOL/L (136-145) Potassium Level 3.9 MMOL/L (3.5-5.1) Chloride Level 107 MMOL/L (98-107) Carbon Dioxide Level 26 MMOL/L (21-32) Anion Gap 8 mmol/L (5-15) Blood Urea Nitrogen 15 mg/dL (7-18) Creatinine 1.5 MG/DL (0.55-1.30) H Estimat Glomerular Filtration Rate 56.1 mL/min (>60) Glucose Level 113 MG/DL (74-106) H Calcium Level 8.9 MG/DL (8.5-10.1) Microbiology Date/Time Source Procedure Growth Status 08/17/20 18:00 Stool Clostridium difficile Toxin Assay - Final Complete Height (Feet): 5 Height (Inches): 9.00 Weight (Pounds): 207 Medications Current Medications Medications (Trade) Dose Ordered Sig/Oanh Route PRN Reason Start Time Stop Time Status Last Admin Dose Admin Acetaminophen (Tylenol) 500 mg Q6H PRN ORAL MOD 08/15/20 02:15 09/14/20 02:14 Acetaminophen (Tylenol) 650 mg Q6H PRN ORAL Mild Pain (Pain Scale 1-3) 08/15/20 02:15 09/14/20 02:14 08/18/20 04:24 Amlodipine Besylate (Norvasc) 2.5 mg DAILY ORAL 08/18/20 09:00 09/14/20 08:59 Bisacodyl (Dulcolax) 10 mg DAILYPRN PRN RECTAL Constipation 08/15/20 02:15 11/13/20 02:14 Clonidine HCl (Catapres Tab) 0.1 mg Q4H PRN ORAL SBP>165 08/15/20 15:15 11/13/20 02:14 Docusate Sodium (Colace) 100 mg THREE TIMES A DAY ORAL 08/16/20 13:00 09/15/20 12:59 08/18/20 09:30 Escitalopram Oxalate (Lexapro) 10 mg DAILY ORAL 08/15/20 09:00 09/14/20 08:59 08/18/20 09:30 Heparin Sodium (Porcine) (Heparin 5000 units/ml) 5,000 units EVERY 12 HOURS SUBQ 08/15/20 09:00 09/29/20 08:59 08/17/20 21:23 Lorazepam (Ativan 2mg/ml 1ml) 1 mg ONCE PRN IV preprocedure 08/17/20 16:15 08/18/20 23:59 08/17/20 16:18 Lorazepam (Ativan) 0.5 mg Q6H PRN ORAL For Anxiety 08/15/20 16:15 08/22/20 16:14 08/16/20 16:00 Losartan Potassium (Cozaar) 50 mg DAILY ORAL 08/19/20 09:00 09/14/20 20:59 Magnesium Hydroxide (Mom) 30 ml DAILYPRN PRN ORAL Constipation 08/15/20 02:15 09/14/20 02:14 Memantine (Namenda) 5 mg BID ORAL 08/16/20 18:00 09/14/20 08:59 08/18/20 09:30 Pantoprazole (Protonix) 40 mg EVERY 12 HOURS ORAL 08/16/20 21:00 09/15/20 20:59 08/18/20 09:30 Risperidone (RisperDAL) 1 mg BID ORAL 08/15/20 09:00 09/29/20 08:59 08/18/20 09:30 Assessment/Plan Assessment/Plan: 70 yo male with PMHx of HTN, COPD, Renal failure, paranoid schizophrenia and psychosis who was [facility] and h ypotension. Diarrhea Unclear ettiology - Less likely infectious Meds? C. diff (neg) Afebrile No leukocytosis HTN COPD Renal failure Paranoid schizophrenia Psychosis PLAN - Continue to monitor off abx - Check stool Cultures - Consider meds / diet changes - Monitor CBC and Temps Thank you for this consult. [facility] will continue to follow Mr. Hernandez with you during her hospitalization. Adria Rogers MD Aug 18, 2020 10:19
--- NOTE | 2020-08-18 10:33 | Cardiac Electrophysiology PN ---
Assessment/Plan Assessment/Plan 1. Syncope. Etiology is not clear at this time. Only mildly bradycardic. Ruled out for myocardial infarction. Neurology evaluation is in progress Urine tox screen is negative. Carotid ultrasound and MRI no acute findings Echocardiogram NL EF60% and no 2. History of hypertension. Continue Cozaar 50 mg b.i.d. and Norvasc 10 mg daily. 3. History of dementia. YOLY RN Subjective Subjective Confused in restraints as pulls out his IV in SR in 70s on tele. No events overnight Objective Last 24 Hour Vital Signs Date Time Temp Pulse Resp B/P (MAP) Pulse Ox O2 Delivery O2 Flow Rate FiO2 08/18/20 08:00 63 08/18/20 08:00 98.7 86 19 103/60 (74) 97 08/18/20 04:54 98.8 08/18/20 04:00 61 08/18/20 04:00 100.0 62 18 103/63 (76) 96 08/18/20 00:00 99.1 68 18 100/66 (77) 96 08/18/20 00:00 82 08/17/20 21:22 113/69 08/17/20 21:00 Room Air 08/17/20 20:00 97.0 85 16 113/72 (86) 98 08/17/20 20:00 95 08/17/20 16:45 78 20 145/73 99 08/17/20 16:18 84 20 125/79 100 08/17/20 16:00 99.9 78 20 145/73 (97) 99 08/17/20 16:00 75 08/17/20 13:22 99.7 84 18 125/79 (94) 100 08/17/20 12:00 99.7 84 18 125/79 (94) 99 08/17/20 12:00 83 Intake and Output 08/17/20 08/18/20 18:59 06:59 Intake Total 750 ml Output Total 1200 ml 400 ml Balance -450 ml -400 ml Intake Oral 750 ml Output Urine Total 1200 ml 400 ml # Voids 1 # Bowel Movements 3 Laboratory Tests Test 08/18/20 06:21 White Blood Count 9.1 K/UL (4.8-10.8) Red Blood Count 4.23 M/UL (4.70-6.10) L Hemoglobin 13.2 G/DL (14.2-18.0) L Hematocrit 37.9 % (42.0-52.0) L Mean Corpuscular Volume 90 FL (80-99) Mean Corpuscular Hemoglobin 31.2 PG (27.0-31.0) H Mean Corpuscular Hemoglobin Concent 34.9 G/DL (32.0-36.0) Red Cell Distribution Width 11.7 % (11.6-14.8) Platelet Count 135 K/UL (150-450) L Mean Platelet Volume 7.0 FL (6.5-10.1) Neutrophils (%) (Auto) 58.9 % (45.0-75.0) Lymphocytes (%) (Auto) 27.8 % (20.0-45.0) Monocytes (%) (Auto) 10.5 % (1.0-10.0) H Eosinophils (%) (Auto) 1.3 % (0.0-3.0) Basophils (%) (Auto) 1.5 % (0.0-2.0) Sodium Level 141 MMOL/L (136-145) Potassium Level 3.9 MMOL/L (3.5-5.1) Chloride Level 107 MMOL/L (98-107) Carbon Dioxide Level 26 MMOL/L (21-32) Anion Gap 8 mmol/L (5-15) Blood Urea Nitrogen 15 mg/dL (7-18) Creatinine 1.5 MG/DL (0.55-1.30) H Estimat Glomerular Filtration Rate 56.1 mL/min (>60) Glucose Level 113 MG/DL (74-106) H Calcium Level 8.9 MG/DL (8.5-10.1) Microbiology Date/Time Source Procedure Growth Status 08/17/20 18:00 Stool Clostridium difficile Toxin Assay - Final Complete Objective HEAD AND NECK: No JVD. LUNGS: Clear. CARDIOVASCULAR: Regular S1 and S2 with no gallop or murmur. ABDOMEN: Soft. EXTREMITIES: No pitting edema. Delvis Ogden MD Aug 18, 2020 10:33
[2020-08-18 12:00] VITALS: BP 109/71
--- NOTE | 2020-08-18 13:59 | General Progress Note ---
Subjective Constitutional: Reports: weakness Allergies: Coded Allergies: IODINE (Verified Allergy, Unknown, 08/14/20) All Systems: reviewed and negative except above Subjective calm in bed Objective Last 24 Hour Vital Signs Date Time Temp Pulse Resp B/P (MAP) Pulse Ox O2 Delivery O2 Flow Rate FiO2 08/18/20 12:00 62 08/18/20 12:00 96.7 68 18 109/71 (84) 96 08/18/20 09:00 Room Air 08/18/20 08:00 63 08/18/20 08:00 98.7 86 19 103/60 (74) 97 08/18/20 04:54 98.8 08/18/20 04:00 61 08/18/20 04:00 100.0 62 18 103/63 (76) 96 08/18/20 00:00 99.1 68 18 100/66 (77) 96 08/18/20 00:00 82 08/17/20 21:22 113/69 08/17/20 21:00 Room Air 08/17/20 20:00 97.0 85 16 113/72 (86) 98 08/17/20 20:00 95 08/17/20 16:45 78 20 145/73 99 08/17/20 16:18 84 20 125/79 100 08/17/20 16:00 99.9 78 20 145/73 (97) 99 08/17/20 16:00 75 Intake and Output 08/17/20 08/18/20 19:00 07:00 Intake Total 750 ml Output Total 1200 ml 400 ml Balance -450 ml -400 ml Intake Oral 750 ml Output Urine Total 1200 ml 400 ml # Voids 1 # Bowel Movements 3 Laboratory Tests 08/18/20 06:21: White Blood Count 9.1, Red Blood Count 4.23L, Hemoglobin 13.2L, Hematocrit 37.9L , Mean Corpuscular Volume 90, Mean Corpuscular Hemoglobin 31.2H, Mean Corpuscular Hemoglobin Concent 34.9, Red Cell Distribution Width 11.7, Platelet Count 135L, Mean Platelet Volume 7.0, Neutrophils (%) (Auto) 58.9, Lymphocytes (%) (Auto) 27.8, Monocytes (%) (Auto) 10.5H, Eosinophils (%) (Auto) 1.3, Basophils (%) (Auto) 1.5, Sodium Level 141, Potassium Level 3.9, Chloride Level 107, Carbon Dioxide Level 26, Anion Gap 8, Blood Urea Nitrogen 15, Creatinine 1.5H, Estimat Glomerular Filtration Rate 56.1, Glucose Level 113H, Calcium Level 8.9 Height (Feet): 5 Height (Inches): 9.00 Weight (Pounds): 207 General Appearance: lethargic EENT: normal ENT inspection Neck: normal alignment Cardiovascular: normal peripheral pulses, normal rate, regular rhythm Respiratory/Chest: chest wall non-tender, lungs clear, normal breath sounds Abdomen: normal bowel sounds, non tender, soft Extremities: normal inspection Edema: no edema noted Arm (L), no edema noted Arm (R), no edema noted Leg (L), no edema noted Leg (R), no edema noted Pedal (L), no edema noted Pedal (R), no edema noted Generalized Neurologic: motor weakness Skin: normal pigmentation, warm/dry Assessment/Plan Problem List: (1) HTN (hypertension) ICD Codes: I10 - Essential (primary) hypertension SNOMED: 88748580 (2) ARF (acute renal failure) ICD Codes: N17.9 - Acute kidney failure, unspecified SNOMED: 34860828 (3) Weak ICD Codes: R53.1 - Weakness SNOMED: 63692323 (4) AMS (altered mental status) ICD Codes: R41.82 - Altered mental status, unspecified SNOMED: 520587868 (5) Anemia ICD Codes: D64.9 - Anemia, unspecified SNOMED: 909754248 (6) COPD (chronic obstructive pulmonary disease) ICD Codes: J44.9 - Chronic obstructive pulmonary disease, unspecified SNOMED: 38021758 (7) Behavioral change ICD Codes: R46.89 - Other symptoms and signs involving appearance and behavior SNOMED: 871916579 (8) Altered mental status ICD Codes: R41.82 - Altered mental status, unspecified SNOMED: 664994807 (9) Syncope ICD Codes: R55 - Syncope and collapse SNOMED: 140833864 Status: stable, progressing Assessment/Plan: pt diet cardio neuro eval dc to [place] White DO Aug 18, 2020 13:59
[2020-08-18 16:00] VITALS: BP 110/80
[2020-08-18 20:00] VITALS: BP 116/74
[2020-08-19] MEDS ORDERED: Losartan 50mg tab ORAL SCH (09:00)
--- NOTE | 2020-08-19 13:14 | Discharge Summary ---
Discharge Summary Discharge Summary _ DATE OF ADMISSION: 08/14/2020 DATE OF DISCHARGE: 08/18/2020 DISCHARGED BY: Dr. Diehl REASON FOR ADMISSION: 70 years old male with past medical history of hypertension, COPD, Alzheimer dementia, schizoaffective disorder, was sent for evaluation due to syncopal episode and confusion. Apparently in the jail patient was found on the floor. Patient could not recall the event or what preceded it. He denied headache, vision changes, focal numbness or weakness. He had no difficulty speaking. No fever or chills. No chest pain or shortness of breath. No back pain. No abdominal pain, nausea , vomiting or diarrhea. No dysuria. Upon evaluation vital signs were stable Laboratory work-up revealed stable electrolytes. BUN 23, creatinine 1.7. Glucose 119. Stable LFT. Troponin negative, pro BNP 47 Albumin 3.9. CBC revealed no leukocytosis, hemoglobin 13.4 ,hematocrit 40.6 ,platelet count 136. CT of the head revealed no acute intracranial pathology. Chest x-ray revealed no acute cardiopulmonary process. Patient admitted for altered mental status and syncope . CONSULTANTS: direct care provider Dr. Diaz neurologist Dr. Li ID specialist Dr. Rogers ear nose throat surgeon Dr. Toure psychiatrist Dr. Hernandez [facility] COURSE: Patient admitted to telemetry floor. Patient received IV hydration. Serial troponin were negative. EKG revealed no acute ischemic changes. Patient was ruled out for acute myocardial infarction. Echocardiogram revealed preserved ejection fraction . Patient was mildly bradycardic initially, which resolved with IV hydration Urine toxicology screen was negative. Carotid ultrasound revealed no significant stenosis. MRI of the brain revealed no acute intracranial pathology. Blood pressure was managed with the Cozaar. DVT and GI prophylaxis provided. Lipid panel revealed LDL 114 , triglycerides 163. Low-fat low-cholesterol diet provided. Dietary instructions provided to patient . Per ear nose throat surgeon patient had acute renal failure on chronic kidney disease likely due to underlying dehydration. Creatinine from 1.7 down to 1.5. IV hydration stopped. Renal parameters and electrolytes were closely monitored, electrolytes further corrected as needed, and nephrotoxic's were avoided. Syncope was possibly due to dehydration . Neurologist recommended to reduce Namenda dose. Serum ammonia, B12 , TSH were all within normal limits. RPR was nonreactive. EEG completed , results at the time of this dictation still pending. Patient had diarrhea . Stool for C. difficile was negative. Patient had no fever , no leukocytosis. Per ID specialist, diarrhea was less likely infectious and more likely due to medication or diet. Patient was kept off antibiotics. Stool for C. difficile was negative. ID specialist recommended consider diet modification and review all medications with potential for causing diarrhea. Diarrhea significantly improved. Psychiatric medication regimen was optimized as per psychiatrist. Cognitive therapy provided. Placement was arranged to acute rehabilitation unit at [facility]. Patient was stable for transfer. FINAL DIAGNOSES: Syncope Toxic metabolic encephalopathy Acute renal failure ( due to underlying dehydration) on chronic c renal failure Hypertension Diarrhea of unclear etiology ( less likely infectious) COPD Mild anemia Hypokalemia Dementia Major depressive disorder, severe, recurrent with guarded feature DISCHARGE MEDICATIONS: List of medication was sent with patient to accepting facility. DISCHARGE INSTRUCTIONS: Patient was discharged to acute rehabilitation unit at [facility] for further management. I have been assigned to dictate discharge summary for this account. I was not involved in the patient's management. Concha Byrd NP Aug 19, 2020 13:14
--- NOTE | 2020-08-19 13:45 | Electroencephalogram ---
DATE OF PROCEDURE: 08/17/2020 EEG REPORT REQUESTING PHYSICIAN: Arnold Li M.D. READING PHYSICIAN: Bereket Oakes MD. HISTORY: This EEG was performed on a 70-year-old gentleman with a history of multiple medical problems including chronic kidney disease, hypertension and psychosis. He was hospitalized for an episode of altered mental state and thus this EEG was performed to evaluate the patient for the degree and type of cerebral dysfunction. TECHNICAL NOTE: This EEG was performed on a [employer] with electrodes placed on the scalp according to the international 10-20 system. [id number] and [id number] montages were used. The EEG was technically satisfactory and was performed in the awake and drowsy states. OBSERVATIONS: In the awake, but not alert state the background activity consisted of 5 to 7 hertz theta activity with some intermixed delta frequencies. In addition, anteriorly predominant polymorphic delta activity was also seen. Drowsiness was characterized by slowing of the background in the 4 to 5 hertz theta and 1.5 to 2 hertz delta range with runs of anteriorly predominant polymorphic delta activity. No definite epileptiform discharges were seen. IMPRESSION: This is an abnormal EEG characterized by, 1. Slowing of the background in the 5 to 7 hertz theta range with some intermixed delta frequencies in the reportedly awake state. 2. The presence of anteriorly predominant polymorphic delta activity seen during wakefulness, but much more during drowsiness. COMMENT: The study is consistent with an encephalopathy of a moderate degree. Clinical correlation is recommended. Bereket Oakes M.D. DR: URBAN JOB#: [id number] CC:
== END 2020-08-18 21:15 | disposition critical access hospital, planned readmission (94) | DRG 682 ==
LOC: EDBD 18:46 → EMR 19:23 → 2E 19:38 → EDBEDREQ 21:28 → 2E 08-18 09:49
DX: N17.9 Acute kidney failure, unspecified (principal); G92 Toxic encephalopathy; F33.2 Major depressive disorder, recurrent severe without psychotic features; R00.1 Bradycardia, unspecified; I95.9 Hypotension, unspecified; E86.0 Dehydration; J44.9 Chronic obstructive pulmonary disease, unspecified; G30.9 Alzheimer's disease, unspecified; F02.80 Dementia in other diseases classified elsewhere, unspecified severity, without behavioral disturbance, psychotic disturbance, mood disturbance, and anxiety; F25.9 Schizoaffective disorder, unspecified; R55 Syncope and collapse; R19.7 Diarrhea, unspecified; D64.9 Anemia, unspecified; E87.6 Hypokalemia; Z88.8 Allergy status to other drugs, medicaments and biological substances; I12.9 Hypertensive chronic kidney disease with stage 1 through stage 4 chronic kidney disease, or unspecified chronic kidney disease; N18.9 Chronic kidney disease, unspecified
CPT/HCPCS: 36415; 70450; 70551; 71045; 80048; 80053; 80061; 80076; 80307; 81003; 82140; 82550; 82607; 83036; 83605; 83735; 83880; 83921; 84100; 84439; 84443; 84484; 84550; 85025; 86592; 86780; 87081; 87324; 93005; 93306; 93880; 95819; 99285; J8499; U0002